=== PATIENT | male | born 2000 | race Caucasian/White ===

== ENCOUNTER 2021-03-10 12:37 | Emergency (ER) | payer MEDICAID ==
[~2021-03-10] VITALS: Ht 180 cm; Wt 99.0 kg
[~2021-03-10 12:37] MED LIST: AGM875T PO; AMOX250S5 PO; AMOX400S9 PO; AMOX500C2 PO; CEFD300C3 PO; CEPH125S PO; DIPH25TA82; IBUP-15; ONDA-42 SL; PRD20T PO
--- NOTE | 2021-03-10 12:53 | ED Lower Extremity ---
General Stated Complaint: LEFT AND RIGHT KNEE INJ/PAIN Source: patient, family (mom) Exam Limitations: no limitations History of Present Illness Date Seen by Provider: Mar 10, 2021 Time Seen by Provider: 12:38 Initial Comments Patient presents ER by private conveyance with his mother chief complaint that yesterday at an after prom constitution party at about 2 AM he was jumping on a trampoline trying to get very high and he came down and hyperextended his right knee. His left knee is also sore but his right knee was very painful and he could not bear any weight on it. He says he rested for an hour and then got back on the trampoline jumped some more and this causes more pain. No previous history of injury, trauma or surgery or scopes involving his limbs. No medical history. He has not taken anything for the pain but he did use ice overnight. He just brought it to his mother's attention this morning so she brought him to the ER to be checked out. Allergies and Home Medications Allergies Coded Allergies: No Known Drug Allergies (Unverified , 07/02/09) Home Medications Amoxicillin/Clavulanate K 875 Mg Tab, 1 TAB PO BID Prescribed by: NAIN LAMAR on 04/10/15 2341 Cefdinir 300 Mg Capsule, 1 EACH PO BID Prescribed by: NAIN LAMAR on 11/06/14 0567 Patient Home Medication List Home Medication List Reviewed: Yes Review of Systems Constitutional: No chills, No fever, No malaise EENTM: No ear discharge, No ear pain Respiratory: No cough, No short of breath Cardiovascular: No chest pain, No edema Gastrointestinal: No abdominal pain, No nausea, No vomiting Genitourinary: No discharge, No dysuria Musculoskeletal: see HPI; No back pain; joint pain All Other Systems Reviewed Negative Unless Noted: Yes Past Cqqfpde-Qkktig-Eishxp Hx Patient Social History Alcohol Use: Denies Use Drug of Choice: Denies Smoking Status: Never a Smoker Type Used: Electronic/Vapor Immunizations Up To Date Tetanus Booster (TDap): Less than 5yrs PED Vaccines UTD: Yes Seasonal Allergies Seasonal Allergies: Yes Past Medical History Reproductive Disorders: No Sexually Transmitted Disease: No Physical Exam Vital Signs Vital Signs - First Documented 03/10/21 12:40 Temp 37.0 Pulse 85 Resp 16 B/P (MAP) 137/80 O2 Delivery Room Air Capillary Refill : Height, Weight, BMI Height: 5'0" Weight: 110lbs. oz. 49.657974ly; BMI Method:Stated General Appearance: WD/WN, no apparent distress HEENT: normal ENT inspection, pharynx normal Neck: full range of motion, normal inspection Cardiovascular: normal peripheral pulses, regular rate, rhythm, no edema Respiratory: no respiratory distress, no accessory muscle use Hips: bilateral hip non-tender, bilateral hip normal inspection, bilateral hip normal range of motion, bilateral hip no evidence of injury Knees: left knee non-tender; bilateral knee normal inspection; left knee normal range of motion, left knee no evidence of injury; right knee bone tenderness (Mild anterior tibial tenderness to palpation), right knee swelling (Slight), right knee other (Lacks about 5 degrees of extension of the knee) Ankles: bilateral ankle non-tender, bilateral ankle normal inspection, bilateral ankle normal range of motion, bilateral ankle no evidence of injury Progress/Results/Core Measures Results/Orders My Orders Orders - BROOK DESAI Knee, Right, 3 Views (03/10/21 12:47) Naproxen Tablet (Naprosyn Tablet) (03/10/21 13:00) Medications Given in ED Current Medications Medications Dose Ordered Sig/Pierre Route Start Time Stop Time Status Last Admin Dose Admin Naproxen 500 mg ONCE ONCE PO 03/10/21 13:00 03/10/21 13:01 DC 03/10/21 13:12 500 MG Vital Signs/I&O 03/10/21 12:40 Temp 37.0 Pulse 85 Resp 16 B/P (MAP) 137/80 O2 Delivery Room Air Progress Progress Note : Time: 12:57 Progress Note The patient was unable to tolerate the pain to do a appropriate full ligamentous knee examination. We gave him an ice pack and offered Toradol which he declined an IM injection. He did except Naprosyn. We are going to put him on a course of NSAIDs and have him follow-up later in the week with an orthopedic surgeon for a more appropriate examination. Will wrap the knees with Jonathan wrap and put him on crutches. Diagnostic Imaging Diagonstic Imaging: Xray Plain Films/CT/US/NM/MRI: knee (Right) Comments [facility] [place], [place] NAME: TARSHA PHILLIP REC#: [id number] PT STATUS: REG ER : 2000 PHYSICIAN: BROOK DESAI MD ADMIT DATE: 03/10/21/ER Draft Date of Exam:03/10/21 KNEE, RIGHT, 3 VIEWS INDICATION: Knee pain, hyperextended jumping on trampoline TECHNIQUE: 3 views of the right knee CORRELATION STUDY: None FINDINGS: The joint spaces are maintained. The articular surfaces are smooth and preserved. There is no acute bony abnormality. Soft tissues are unremarkable. IMPRESSION: 1. Negative for acute bony abnormality of the knee. Dictated on workstation # [id number] Dict: 03/10/21 1312 Trans: 03/10/21 1312 DO [id number] Interpreted by: MARCUS ROSENBERG DO Electronically signed by: Reviewed: Reviewed by Me Departure Impression Primary Impression: Knee sprain, bilateral Disposition: 01 HOME, SELF-CARE Condition: Stable Departure-Patient Inst. Decision time for Depature: 13:18 Referrals: [facility] [place] Primary Care Physician FIOR HU MD, MICHAEL P MD Patient Instructions: Knee Sprain (DC) Add. Discharge Instructions: I suspect you have partially injured the ligaments of your knee otherwise known as a sprain. Would be vázquez to follow-up with an orthopedic surgeon in the next 1 to 2 weeks for reevaluation of your knees when the pain and swelling have improved. Make sure you are drinking plenty of fluids. Use ice for the first couple days for 20 minutes every 2 hours while awake. Warm moist heat and topical creams such as icy hot or creams with capsaicin oil are often helpful. Tylenol 650 mg every 8 hours as necessary for pain. Start a regimen of NSAIDs daily to reduce the inflammation in your back. Ibuprofen 800 mg every 8 hours or naproxen 500 mg twice a day. Crutches for the first week and bear weight as tolerated on the right leg. You may follow-up with [facility] therapy by calling for a no upfront cost evaluation at [phone]. I highly encourage you also to follow-up with an orthopedic surgeon such as Dr. APONTE, Dr. Hu or [facility] by calling [phone]. You should also seek help through your primary care office and managing your symptoms. Scripts Naproxen (Naprosyn) 500 Mg Tablet 500 MG PO BID for 14 Days, #30 TAB 0 Refills Prov: BROOK DESAI 03/10/21 Work/School Note: School/Childcare Release Date Seen in the Emergency Department: Mar 10, 2021 Time Dismissed from Emergency Department: 13:21 Return to School: Mar 11, 2021 Restrictions: Need Release from Doctor Other Restrictions Listed Below: May use crutches and weightbearing as tolerated right leg until 03/25/2021. BROOK DESAI Mar 10, 2021 12:53
[2021-03-10] MEDS ORDERED: NAPROXEN 250 MG (NAPROSYN) TABLET PO ONE (13:00)
--- NOTE | 2021-03-10 13:12 | Diagnostic Imaging Report ---
INDICATION: Knee pain, hyperextended jumping on trampoline TECHNIQUE: 3 views of the right knee CORRELATION STUDY: None FINDINGS: The joint spaces are maintained. The articular surfaces are smooth and preserved. There is no acute bony abnormality. Soft tissues are unremarkable. IMPRESSION: 1. Negative for acute bony abnormality of the knee. Dictated by: Dictated on workstation # [id number]
[2021-03-10] MEDS ORDERED: NAPR-1071 PO (13:21)
== END 2021-03-10 13:41 | disposition home or self-care (01) ==
LOC: EDUNIT# 12:37 → ER 12:39
DX: S83.92XA Sprain of unspecified site of left knee, initial encounter (principal); S83.91XA Sprain of unspecified site of right knee, initial encounter; X50.1XXA Overexertion from prolonged static or awkward postures, initial encounter; Y93.44 Activity, trampolining
CPT/HCPCS: 73562; 99282

== ENCOUNTER 2021-04-19 09:02 | Emergency (ER) | payer MEDICAID ==
[~2021-04-19] VITALS: Ht 177 cm; Wt 99.0 kg
[~2021-04-19 09:02] MED LIST changes: +NAPR-1071 PO
[2021-04-19 09:21] LABS: BASOPHILS # (AUTO) 0.1 10^3/uL (0.0-0.1); BASOPHILS % (AUTO) 1 % (0-10); EOSINOPHILS # (AUTO) 0.3 10^3/uL (0.0-0.3); EOSINOPHILS % (AUTO) 3 % (0-10); HEMATOCRIT 44 % (40-54); HEMOGLOBIN 14.4 g/dL (13.3-17.7); LYMPHOCYTES # (AUTO) 2.9 10^3/uL (1.0-4.0); LYMPHOCYTES % (AUTO) 26 % (12-44); MEAN CORPUSCULAR HEMOGLOBIN 28 pg (25-34); MEAN CORPUSCULAR HGB CONC 33 g/dL (32-36); MEAN CORPUSCULAR VOLUME 86 fL (80-99); MONOCYTES # (AUTO) 0.8 10^3/uL (0.0-1.0); MONOCYTES % (AUTO) 7 % (0-12); NEUTROPHILS # (AUTO) 6.9 10^3/uL (1.8-7.8); NEUTROPHILS % (AUTO) 63 % (42-75); PLATELET COUNT 372 10^3/uL (130-400)
[2021-04-19 09:33] LABS: CHLORIDE 102 MMOL/L (98-107); SODIUM 138 MMOL/L (135-145)
[2021-04-19 09:34] LABS: CALCIUM 9.9 MG/DL (8.5-10.1)
[2021-04-19 09:35] LABS: GLUCOSE 117 MG/DL (70-105)
[2021-04-19 09:36] LABS: CARBON DIOXIDE 23 MMOL/L (21-32)
[2021-04-19 09:38] LABS: CREATININE SERUM 0.83 MG/DL (0.60-1.30); GFR ESTIMATED > 60
[2021-04-19 09:39] LABS: BUN/CREATININE RATIO 13
[2021-04-19 09:41] LABS: MAGNESIUM 2.1 MG/DL (1.6-2.4)
--- NOTE | 2021-04-19 09:56 | Diagnostic Imaging Report ---
EXAMINATION: US Right Lower Extremity Venous Duplex. TECHNIQUE: Multiple real-time grayscale images were obtained over the right lower extremity in various projections. Additional spectral analysis and color Doppler duplex images were also obtained. HISTORY: Edema and pain in the right lower extremity. COMPARISON: None available. FINDINGS: The right common femoral vein, deep femoral vein, superficial femoral vein and popliteal vein are patent with normal zhao scale and doppler appearance. There is normal respiratory variation and augmentation. IMPRESSION: 1. No DVT of the right lower extremity. Dictated by: Dictated on workstation # [id number]
[2021-04-19] MEDS ORDERED: LACTATED RINGERS 1,000 ML IV ONE (10:00)
--- NOTE | 2021-04-19 10:37 | ED Syncope ---
General Chief Complaint: Dizziness/Syncope Stated Complaint: DIZZINESS,NUMBNESS, S/P R KNEE SX Nursing Triage Note: PT AMB TO ROOM 6 W CRUTCHES HAS KNEE BRACE IN PLACE ON R LEG, PT STATES @ 0200 THIS AM PT WAS DIZZY, NAUSEATED AND BODY WENT NUMB. SPOKE W MOM THIS AM AND DECIDED TO GET CHECKED AT ED. PT HAD ACL REPAIR ON 04/12/21. Source of Information: Patient, Family History of Present Illness Date Seen by Provider: April 19, 2021 Time Seen by Provider: 09:06 Initial Comments This 20-year-old young man presents to the emergency room accompanied by his mother with complaints of a near syncopal episode last night. He got up to go to the kitchen and became lightheaded and nauseated. He went to lay down and noticed generalized numbness throughout his extremities. He went to bed and is feeling fine this morning. He is about 1 week postop from a right knee arthroscopic ACL repair. He does have some swelling, bruising, and pain in the right lower leg including the calf. He denies chest pain or shortness of breath. Patient was noted to be tachycardic on telemetry. Allergies and Home Medications Allergies Coded Allergies: No Known Drug Allergies (Unverified , 07/02/09) Home Medications Amoxicillin/Clavulanate K 875 Mg Tab, 1 TAB PO BID Prescribed by: NAIN LAMAR on 04/10/15 2341 Cefdinir 300 Mg Capsule, 1 EACH PO BID Prescribed by: NAIN LAMAR on 11/06/14 0546 Naproxen 500 Mg Tablet, 500 MG PO BID Prescribed by: BROOK DESAI on 03/10/21 1321 Patient Home Medication List Home Medication List Reviewed: Yes Review of Systems Constitutional: no symptoms reported EENTM: no symptoms reported Respiratory: no symptoms reported Cardiovascular: see HPI Gastrointestinal: see HPI Genitourinary: no symptoms reported Musculoskeletal: see HPI Skin: see HPI Psychiatric/Neurological: See HPI Past Ntrqrao-Ndvciv-Bpafmn Hx Past Med/Social Hx: Reviewed Nursing Past Med/Soc Hx Patient Social History Alcohol Use: Denies Use Drug of Choice: Denies Type Used: Electronic/Vapor Recent Infectious Disease Expo: No Recent Hopitalizations: No Ebola Symptoms: Denies Symptoms Listed Immunizations Up To Date Tetanus Booster (TDap): Less than 5yrs PED Vaccines UTD: Yes Seasonal Allergies Seasonal Allergies: Yes Past Medical History Surgeries: Yes Orthopedic (Right ACL repair) Respiratory: No Cardiac: No Neurological: No Reproductive Disorders: No Sexually Transmitted Disease: No Gastrointestinal: No Musculoskeletal: No Endocrine: No HEENT: No Cancer: No Psychosocial: No Integumentary: No Blood Disorders: No Physical Exam Vital Signs Vital Signs - First Documented 04/19/21 04/19/21 09:03 10:48 Temp 36.7 Pulse 119 Resp 20 B/P (MAP) 142/87 Pulse Ox 99 Capillary Refill : Height, Weight, BMI Height: 5'0" Weight: 110lbs. oz. 49.190398yk; 31.00 BMI Method:Stated General Appearance: No Apparent Distress, WD/WN HEENT: Normal ENT Inspection Neck: Normal Inspection Cardiovascular: Regular Rate, Rhythm, No Edema, No Murmur Respiratory: Lungs Clear, Normal Breath Sounds, No Accessory Muscle Use Gastrointestinal: Soft; No Distended Extremities: Other (Typical postoperative changes with incisions over the right knee, ecchymosis, and minor swelling. No inflammatory changes to suggest infection. Mild calf tenderness.) Neurologic/Psychiatric: Alert, Oriented x3, No Motor/Sensory Deficits, Normal Mood/Affect, filter tender jelly II-XII Norm as Tested Cranial Nerves: Normal Hearing, Normal Speech Motor/Sensory: No Motor Deficit Skin: Normal Color, Warm/Dry Progress/Results/Core Measures Results/Orders Lab Results Laboratory Tests Test 04/19/21 09:10 Range/Units White Blood Count 11.0 4.3-11.0 10^3/uL Red Blood Count 5.12 4.30-5.52 10^6/uL Hemoglobin 14.4 13.3-17.7 g/dL Hematocrit 44 40-54 % Mean Corpuscular Volume 86 80-99 fL Mean Corpuscular Hemoglobin 28 25-34 pg Mean Corpuscular Hemoglobin Concent 33 32-36 g/dL Red Cell Distribution Width 13.2 10.0-14.5 % Platelet Count 372 130-400 10^3/uL Mean Platelet Volume 9.0 9.0-12.2 fL Immature Granulocyte % (Auto) 0 % Neutrophils (%) (Auto) 63 42-75 % Lymphocytes (%) (Auto) 26 12-44 % Monocytes (%) (Auto) 7 0-12 % Eosinophils (%) (Auto) 3 0-10 % Basophils (%) (Auto) 1 0-10 % Neutrophils # (Auto) 6.9 1.8-7.8 10^3/uL Lymphocytes # (Auto) 2.9 1.0-4.0 10^3/uL Monocytes # (Auto) 0.8 0.0-1.0 10^3/uL Eosinophils # (Auto) 0.3 0.0-0.3 10^3/uL Basophils # (Auto) 0.1 0.0-0.1 10^3/uL Immature Granulocyte # (Auto) 0.0 0.0-0.1 10^3/uL Sodium Level 138 135-145 MMOL/L Potassium Level 4.0 3.6-5.0 MMOL/L Chloride Level 102 98-107 MMOL/L Carbon Dioxide Level 23 21-32 MMOL/L Anion Gap 13 5-14 MMOL/L Blood Urea Nitrogen 11 7-18 MG/DL Creatinine 0.83 0.60-1.30 MG/DL Estimat Glomerular Filtration Rate > 60 BUN/Creatinine Ratio 13 Glucose Level 117 H 70-105 MG/DL Calcium Level 9.9 8.5-10.1 MG/DL Magnesium Level 2.1 1.6-2.4 MG/DL My Orders Orders - KRISS GONZALEZ MD Basic Metabolic Panel (04/19/21 09:16) Cbc With Automated Diff (04/19/21 09:16) Magnesium (04/19/21 09:16) Ed Iv/Invasive Line Start (04/19/21 09:16) Ekg Tracing (04/19/21 09:16) Monitor-Rhythm Ecg Trace Only (04/19/21 09:16) Us Venous Lower Ext Rt (04/19/21 09:16) Lactated Ringers (Lr 1000 Ml Iv Solution (04/19/21 10:00) Vital Signs/I&O 04/19/21 04/19/21 09:03 10:48 Temp 36.7 Pulse 119 84 Resp 20 20 B/P (MAP) 142/87 Pulse Ox 99 Progress Progress Note : Progress Note Work-up was unremarkable. Patient did comment that he has not been drinking well recently. IV fluids were offered but patient elects to aggressively orally hydrate. Ultrasound of the right lower extremity was obtained to rule out DVT with possible subsequent PE. Ultrasound was negative. Initial ECG Impression Date: April 19, 2021 Initial ECG Impression Time: 09:20 Initial ECG Rate: 86 Initial ECG Rhythm: Normal Sinus Initial ECG Intervals: Normal Initial ECG Impression: Normal Comment Normal sinus rhythm with no ST elevation or depression. No abnormal intervals or axis deviation. Diagnostic Imaging Diagonstic Imaging: Ultrasound Plain Films/CT/US/NM/MRI: leg Comments NAME: TARSHA PHILLIP [facility] REC#: [id number] PT STATUS: REG ER : 2000 PHYSICIAN: KRISS GONZALEZ MD ADMIT DATE: 04/19/21/ER Signed Date of Exam:04/19/21 US VENOUS LOWER EXT RT EXAMINATION: US Right Lower Extremity Venous Duplex. TECHNIQUE: Multiple real-time grayscale images were obtained over the right lower extremity in various projections. Additional spectral analysis and color Doppler duplex images were also obtained. HISTORY: Edema and pain in the right lower extremity. COMPARISON: None available. FINDINGS: The right common femoral vein, deep femoral vein, superficial femoral vein and popliteal vein are patent with normal zhao scale and doppler appearance. There is normal respiratory variation and augmentation. IMPRESSION: 1. No DVT of the right lower extremity. Dictated by: Dictated on workstation # [id number] Dict: 04/19/2156 Trans: 04/19/2159 [facility] [id number] Interpreted by: ELIO BARBOZA DO Electronically signed by: ELIO BARBOZA DO 04/19/21 0959 Departure Impression Primary Impression: Near syncope Additional Impression: Postoperative pain Disposition: 01 HOME, SELF-CARE Condition: Improved Departure-Patient Inst. Decision time for Depature: 10:36 Referrals: [facility] (PCP/Family) Primary Care Physician Patient Instructions: Syncope (Fainting) Add. Discharge Instructions: Drink plenty of clear liquids to stay well-hydrated. Call with questions or concerns. Keep your follow-up as directed with the orthopedic team. Return to the emergency room if you have worsening symptoms. All discharge instructions reviewed with patient and/or family. Voiced understanding. KRISS GONZALEZ MD April 19, 2021 10:37
== END 2021-04-19 10:47 | disposition home or self-care (01) ==
LOC: EDUNIT# 09:02 → ER 09:04
DX: R55 Syncope and collapse (principal); G89.18 Other acute postprocedural pain; M79.661 Pain in right lower leg
CPT/HCPCS: 36415; 80048; 83735; 85025; 93005; 93041

== ENCOUNTER 2021-10-14 13:03 | Emergency (ER) | payer MEDICAID ==
[~2021-10-14] VITALS: Ht 180 cm; Wt 97.0 kg
[2021-10-14] MEDS ORDERED: TETANUS,DIPTH,PERTUSS P/F (BOOSTRIX) 0.5 ML VIAL IM ONE (13:30)
[2021-10-14] MEDS ORDERED: LIDOCAINE 1% INJ 20 ML 20 ML VIAL INJ ONE (13:30)
[2021-10-14] MEDS ORDERED: CEPH500T PO (13:30)
--- NOTE | 2021-10-14 13:30 | ED Lower Extremity ---
General Chief Complaint: Laceration Stated Complaint: RIGHT FOOT CUT OPEN Source: patient Exam Limitations: no limitations History of Present Illness Date Seen by Provider: Oct 14, 2021 Time Seen by Provider: 13:12 Initial Comments This is a well-appearing 21-year-old male who presented to the ER via POV with complaints of cut on the top of his right foot. States that he opened the front door and the wind caught it and brought it back against his foot. This occurred approximately 1 hour prior to arrival. He applied pressure and attempted to bandage his foot however he was unable to stop the bleeding. States that he does not know if he has ever received a tetanus vaccine and is unsure of his last tetanus shot. No other injuries reported. Allergies and Home Medications Allergies Coded Allergies: No Known Drug Allergies (Unverified , 07/02/09) Patient Home Medication List Home Medication List Reviewed: Yes Amoxicillin/Clavulanate K (Augmentin 875 Mg Tablet) 875 Mg Tab, 1 TAB PO BID Prescribed by: NAIN LAMAR on 04/10/15 2341 Cefdinir (Cefdinir) 300 Mg Capsule, 1 EACH PO BID Prescribed by: NAIN LAMAR on 11/06/14 0546 Cephalexin (Cephalexin) 500 Mg Tablet, 500 MG PO TID Prescribed by: PHYLLIS HARPER on 10/14/21 1330 Naproxen (Naprosyn) 500 Mg Tablet, 500 MG PO BID Prescribed by: BROOK DESAI on 03/10/21 1321 Review of Systems Constitutional: no symptoms reported Musculoskeletal: no symptoms reported Skin: see HPI Past Lzbwzoj-Mmmzkb-Jngyny Hx Patient Social History Use of E-Cig and/or Vaping dev: Yes E-Cig or Vaping type used: Nicotine Use of E-Cig and/or Vaping Darion: Current Everyday User Substance use?: Yes Substance type: Marijuana Alcohol Use?: No Pt feels they are or have been: No Immunizations Up To Date Tetanus Booster (TDap): Less than 5yrs PED Vaccines UTD: Yes Seasonal Allergies Seasonal Allergies: Yes Past Medical History Surgeries: Yes Orthopedic Respiratory: No Cardiac: No Neurological: No Reproductive Disorders: No Sexually Transmitted Disease: No Gastrointestinal: No Musculoskeletal: No Endocrine: No HEENT: No Cancer: No Psychosocial: No Integumentary: No Blood Disorders: No Physical Exam Vital Signs Vital Signs - First Documented 10/14/21 13:13 Temp 36.6 Pulse 78 Resp 16 B/P (MAP) 131/84 (100) Pulse Ox 98 Capillary Refill : Height, Weight, BMI Height: 5'0" Weight: 110lbs. oz. 49.729027df; 31.00 BMI Method:Stated General Appearance: WD/WN, no apparent distress HEENT: PERRL/EOMI Neck: full range of motion, normal inspection Respiratory: no respiratory distress, no accessory muscle use Legs: bilateral leg non-tender, bilateral leg normal inspection, bilateral leg normal range of motion Feet: left foot non-tender; bilateral foot normal range of motion; right foot soft tissue tenderness, right foot swelling (small hematoma present under laceration site. ), right foot other (2cm laceration doral aspect of right foot, over 4th metatarsal ) Neurologic/Tendon: normal sensation, normal motor functions, normal tendon functions Neurologic/Psychiatric: no motor/sensory deficits, alert, normal mood/affect Skin: normal color, warm/dry Procedures/Interventions Other Wound Location right dorsal foot Wound Length (cm): 2 Wound's Depth, Shape: linear Wound Explored: clean Irrigated w/ Saline (ccs): 50 Betadine Prep?: Yes Anesthesia: 1% Lidocaine Volume Anesthetic (ccs): 2 Suture: Ethlion Suture Size: 3-0 Number of Sutures: 2 Progress Cleansed with saline and chlorhexadine. Locally anesthetized with 2cc Lidocaine 1%, irrigated with 50cc NS, approximated with 2 sutures (3-0 Nylon). Covered with telfa and ricky wrap. Ice pack applied. Tolerated well. Progress/Results/Core Measures Results/Orders My Orders Orders - PHYLLIS HARPER APRN Lidocaine 1% Inj 20 Ml (Xylocaine 1% Inj (10/14/21 13:30) Dipht,Pertuss(Acell),Tet Adult (Boostrix (10/14/21 13:30) Foot, Right, 3 View (10/14/21 13:21) Medications Given in ED Current Medications Medications Dose Ordered Sig/Pierre Route Start Time Stop Time Status Last Admin Dose Admin Diphtheria/ Tetanus/Acell Pertussis 0.5 ml ONCE ONCE IM 10/14/21 13:30 10/14/21 13:31 DC 10/14/21 13:35 0.5 ML Lidocaine HCl 20 ml ONCE ONCE INJ 10/14/21 13:30 10/14/21 13:31 DC 10/14/21 13:35 20 ML Vital Signs/I&O 10/14/21 13:13 Temp 36.6 Pulse 78 Resp 16 B/P (MAP) 131/84 (100) Pulse Ox 98 Progress Progress Note : Progress Note Patient examined and in no acute distress. Currently rating pain 3/10 and is comfortable at this time. Will obtain x-ray of his foot to check for any acute fractures. Cleansed area with saline and chlorhexidine wash dry dressing applied at this time. Images reviewed no acute fractures. Approximated wound with 2 sutures, tolerated procedure well. Discharge plan of care reviewed and he is agreeable with plan. Diagnostic Imaging Diagonstic Imaging: Xray Comments [facility]. [place], [place] NAME: TARSHA PHILLIP [facility] REC#: [id number] PT STATUS: REG ER : 2000 PHYSICIAN: PHYLLIS HARPER CLOTHING MAN ADMIT DATE: 10/14/21/ER Draft Date of Exam:10/14/21 FOOT, RIGHT, 3 VIEW INDICATION: Laceration injury COMPARISON: 08/18/2014 FINDINGS: 3 views of the right foot demonstrate no acute fracture or dislocation. There are no focal osseous lesions. There is no soft tissue swelling. Joint spaces are well maintained. No radiopaque foreign bodies are seen. IMPRESSION: No acute fractures or dislocations of the right foot. Dictated on workstation # [id number] Dict: 10/14/21 1351 Trans: 10/14/21 1352 [facility] [id number] Interpreted by: DARCIE ZEPEDA MD Electronically signed by: Reviewed: Reviewed by Me Departure Impression Primary Impression: Laceration of foot, right Disposition: 01 HOME, SELF-CARE Condition: Improved Departure-Patient Inst. Decision time for Depature: 13:51 Referrals: [facility] (PCP/Family) Primary Care Physician Patient Instructions: Laceration Repair With Stitches (DC) Add. Discharge Instructions: Plan: 1. Keep foot elevated above your heart as much as possible over the next 48-72 hours to reduce swelling. 2. May take Tylenol or Ibuprofen as needed per package for pain. 3. Keep dry dressing over suture site so your socks do not stick to sutures. 4. May shower as normal, avoid soaking, swimming, or scrubbing area while sutures in place. 5. Return to ER in 10 days to have sutures removed. 6. Monitor for signs of infection: redness, swelling, pain, drainage. Follow up with your doctor or return if you notice any sings of infection. 7. Return for any new, concerning, or worsening symptoms. 8. Your tetanus was updated today. You may have a low grade fever and pain at injection site. This is normal. All discharge instructions reviewed with patient and/or family. Voiced understanding. Scripts Cephalexin (Cephalexin) 500 Mg Tablet 500 MG PO TID for 5 Days, #15 TAB 0 Refills Prov: PHYLLIS HARPER APRN 10/14/21 PHYLLIS HARPER APRN Oct 14, 2021 13:30
--- NOTE | 2021-10-14 13:53 | Diagnostic Imaging Report ---
INDICATION: Laceration injury COMPARISON: 08/18/2014 FINDINGS: 3 views of the right foot demonstrate no acute fracture or dislocation. There are no focal osseous lesions. There is no soft tissue swelling. Joint spaces are well maintained. No radiopaque foreign bodies are seen. IMPRESSION: No acute fractures or dislocations of the right foot. Dictated by: Dictated on workstation # [id number]
[2021-10-14 14:20] VITALS: BP 131/84
== END 2021-10-14 14:20 | disposition home or self-care (01) ==
LOC: EDUNIT# 13:03 → ER 13:06
DX: S91.311A Laceration without foreign body, right foot, initial encounter (principal); F17.200 Nicotine dependence, unspecified, uncomplicated; Z23 Encounter for immunization; W26.8XXA Contact with other sharp object(s), not elsewhere classified, initial encounter
CPT/HCPCS: 12001; 73630; 90715

== ENCOUNTER 2021-10-25 15:12 | Emergency (ER) | payer MEDICAID ==
[~2021-10-25] VITALS: Ht 180 cm; Wt 100.0 kg
[~2021-10-25 15:12] MED LIST changes: +CEPH500T PO
[2021-10-25 15:18] VITALS: BP 131/78
== END 2021-10-25 15:28 | disposition home or self-care (01) ==
LOC: EDUNIT# 15:12 → ER 15:13
DX: Z48.02 Encounter for removal of sutures (principal)

== ENCOUNTER 2021-12-05 16:37 | Emergency (ER) | payer MEDICAID ==
[~2021-12-05] VITALS: Ht 180 cm; Wt 99.0 kg
[2021-12-05] MEDS ORDERED: KETOROLAC 30 MG/ML VIAL IVP STA (16:49)
[2021-12-05] MEDS ORDERED: LACTATED RINGERS 1,000 ML IV STA (16:49)
[2021-12-05] MEDS ORDERED: ACETAMINOPHEN 500 MG TAB (TYLENOL) PO STA (16:49)
--- NOTE | 2021-12-05 16:57 | ED General ---
General Chief Complaint: COVID19 Suspect/Confirmed Stated Complaint: BODY ACHES,HEADACHE,CHILLS,DIZZY Source of Information: Patient Exam Limitations: No Limitations History of Present Illness Date Seen by Provider: Dec 05, 2021 Time Seen by Provider: 16:42 Initial Comments Here with chills, sore throat, runny nose, body aches, cough and malaise that started yesterday as well as a few days of diarrhea. No known contact with COVID-19 although high levels in the community. Did have contact a few weeks ago. Lives in [place] but was here working on a car. States overall feels very weak. Follows with [facility] in [place]. Has not had anything for the pain today. Timing/Duration: 1-2 Days, Getting Worse Severity: Moderate Associated Systoms: Cough, Fever/Chills, Headaches, Loss of Appetite, Malaise; No Shortness of Air Allergies and Home Medications Allergies Coded Allergies: No Known Drug Allergies (Unverified , 07/02/09) Patient Home Medication List Home Medication List Reviewed: Yes Amoxicillin/Clavulanate K (Augmentin 875 Mg Tablet) 875 Mg Tab, 1 TAB PO BID Prescribed by: NAIN LAMAR on 04/10/15 2341 Cefdinir (Cefdinir) 300 Mg Capsule, 1 EACH PO BID Prescribed by: NAIN LAMAR on 11/06/14 0546 Cephalexin (Cephalexin) 500 Mg Tablet, 500 MG PO TID Prescribed by: PHYLLIS HARPER on 10/14/21 1330 Naproxen (Naprosyn) 500 Mg Tablet, 500 MG PO BID Prescribed by: BROOK DESAI on 03/10/21 1321 Review of Systems Review of Systems Constitutional: see HPI, chills, malaise EENTM: see HPI Respiratory: No short of breath, No wheezing Cardiovascular: no symptoms reported Gastrointestinal: diarrhea; No nausea, No vomiting Genitourinary: no symptoms reported Musculoskeletal: No joint pain; muscle pain Skin: no symptoms reported Psychiatric/Neurological: No Symptoms Reported All Other Systems Reviewed Negative Unless Noted: Yes Past Aggchje-Udeggb-Tavxuk Hx Patient Social History Tobacco Use?: No Use of E-Cig and/or Vaping dev: Yes E-Cig or Vaping type used: Nicotine Substance use?: Yes Substance type: Marijuana Alcohol Use?: No Pt feels they are or have been: No Immunizations Up To Date Tetanus Booster (TDap): Less than 5yrs PED Vaccines UTD: Yes Seasonal Allergies Seasonal Allergies: Yes Past Medical History Surgery/Hospitalization HX: ACL REPAIR Surgeries: Yes Orthopedic Respiratory: No Cardiac: No Neurological: No Reproductive Disorders: No Sexually Transmitted Disease: No Gastrointestinal: No Musculoskeletal: No Endocrine: No HEENT: No Cancer: No Psychosocial: No Integumentary: No Blood Disorders: No Family Medical History Reviewed Nursing Family Hx No Pertinent Family Hx Physical Exam Vital Signs Vital Signs - First Documented 12/05/21 16:41 Temp 37.1 Pulse 116 Resp 18 B/P (MAP) 148/93 (111) Pulse Ox 96 O2 Delivery Room Air Capillary Refill : Height, Weight, BMI Height: 5'0" Weight: 110lbs. oz. 49.687165tb; 29.00 BMI Method:Actual General Appearance: No Apparent Distress, WD/WN HEENT: PERRL/EOMI, Pharynx Normal Neck: Non Tender, Supple Respiratory: Lungs Clear, Normal Breath Sounds Cardiovascular: No Murmur, Tachycardia Gastrointestinal: No Organomegaly, Non Tender, Soft Back: Normal Inspection, No CVA Tenderness, No Vertebral Tenderness Extremity: Normal Range of Motion, Non Tender Neurologic/Psychiatric: Alert, Oriented x3 Skin: Normal Color, Warm/Dry Procedures/Interventions Suture Size: 3-0 Progress/Results/Core Measures Suspected Sepsis SIRS Temperature: Pulse: Respiratory Rate: Laboratory Tests 12/05/21 16:51: White Blood Count 9.4 Blood Pressure / Mean: Laboratory Tests 12/05/21 16:51: Creatinine 0.85, Platelet Count 294, Total Bilirubin 0.2 Results/Orders Lab Results Laboratory Tests Test 12/05/21 16:51 Range/Units White Blood Count 9.4 4.3-11.0 10^3/uL Red Blood Count 5.25 4.30-5.52 10^6/uL Hemoglobin 14.8 13.3-17.7 g/dL Hematocrit 44 40-54 % Mean Corpuscular Volume 84 80-99 fL Mean Corpuscular Hemoglobin 28 25-34 pg Mean Corpuscular Hemoglobin Concent 33 32-36 g/dL Red Cell Distribution Width 13.6 10.0-14.5 % Platelet Count 294 130-400 10^3/uL Mean Platelet Volume 9.1 9.0-12.2 fL Immature Granulocyte % (Auto) 1 % Neutrophils (%) (Auto) 81 H 42-75 % Lymphocytes (%) (Auto) 4 L 12-44 % Monocytes (%) (Auto) 12 0-12 % Eosinophils (%) (Auto) 1 0-10 % Basophils (%) (Auto) 1 0-10 % Neutrophils # (Auto) 7.6 1.8-7.8 X 10^3 Lymphocytes # (Auto) 0.4 L 1.0-4.0 X 10^3 Monocytes # (Auto) 1.1 H 0.0-1.0 X 10^3 Eosinophils # (Auto) 0.1 0.0-0.3 10^3/uL Basophils # (Auto) 0.1 0.0-0.1 10^3/uL Immature Granulocyte # (Auto) 0.1 0.0-0.1 10^3/uL Neutrophils % (Manual) 86 % Lymphocytes % (Manual) 1 % Monocytes % (Manual) 10 % Eosinophils % (Manual) 2 % Basophils % (Manual) 0 % Band Neutrophils 1 % Sodium Level 137 135-145 MMOL/L Potassium Level 3.8 3.6-5.0 MMOL/L Chloride Level 101 98-107 MMOL/L Carbon Dioxide Level 23 21-32 MMOL/L Anion Gap 13 5-14 MMOL/L Blood Urea Nitrogen 10 7-18 MG/DL Creatinine 0.85 0.60-1.30 MG/DL Estimat Glomerular Filtration Rate 128 BUN/Creatinine Ratio 12 Glucose Level 117 H 70-105 MG/DL Calcium Level 9.7 8.5-10.1 MG/DL Corrected Calcium 8.5-10.1 MG/DL Total Bilirubin 0.2 0.1-1.0 MG/DL Aspartate Amino Transf (AST/SGOT) 21 5-34 U/L Alanine Aminotransferase (ALT/SGPT) 17 0-55 U/L Alkaline Phosphatase 87 40-136 U/L C-Reactive Protein 0.35 <0.50 MG/DL Total Protein 8.4 H 6.4-8.2 GM/DL Albumin 5.1 H 3.2-4.5 GM/DL Influenza Type A Antigen NEGATIVE NEGATIVE Influenza Type B Antigen NEGATIVE NEGATIVE My Orders Orders - NATI RESENDIZ MD Ondansetron Injection (Zofran Injectio (12/05/21 17:00) Lactated Ringers (Lr 1000 Ml Iv Solution (12/05/21 16:49) Ed Iv/Invasive Line Start (12/05/21 16:49) Acetaminophen Tablet (Tylenol Tablet) (12/05/21 16:49) Ketorolac Injection (Toradol Injection) (12/05/21 16:49) Cbc With Automated Diff (12/05/21 16:49) Comprehensive Metabolic Panel (12/05/21 16:49) Crp Fs (12/05/21 16:49) Influenza A & B Antigens (12/05/21 16:49) Coronavirus Sars-Cov-2 So 2019 (12/05/21 16:49) Manual Differential (12/05/21 16:51) Medications Given in ED Current Medications Medications Dose Ordered Sig/Pierre Route Start Time Stop Time Status Last Admin Dose Admin Ondansetron HCl 4 mg ONCE ONCE IVP 12/05/21 17:00 12/05/21 17:01 DC 12/05/21 16:57 4 MG Vital Signs/I&O 12/05/21 12/05/21 16:41 17:43 Temp 37.1 37.1 Pulse 116 99 Resp 18 18 B/P (MAP) 148/93 (111) 123/77 Pulse Ox 96 98 O2 Delivery Room Air Room Air Capillary Refill : Progress Note : Progress Note Seen and evaluated. IV, labs, influenza screening, COVID-19 screen, LR 1 L bolus, Zofran 4 mg IV, Toradol 30 mg IV and Tylenol 1 g p.o. ordered. Monitor patient. 1814: Overall doing better. Urinating now. Flu is negative but COVID is pending. I do believe he has COVID given his presentation and community spread. I discussed this with him. Discharged home with return precautions. Patient verbalized understanding of instructions and agreement with plan. Departure Impression Primary Impression: Person under investigation for COVID-19 Additional Impression: Diarrhea Disposition: 01 HOME, SELF-CARE Condition: Improved Departure-Patient Inst. Decision time for Depature: 18:14 Referrals: [facility] (PCP/Family) Primary Care Physician Patient Instructions: COVID-19 (DC), Diarrhea, Adult ED Add. Discharge Instructions: All discharge instructions reviewed with patient and/or family. Voiced understanding. Drink plenty of fluids by taking small sips frequently and get plenty of rest. You will need to remain isolated until test results are noted. If they are ne gative, you will need remain isolated for 3 days after symptoms resolve. If they are positive, the health department will call you and direct quarantine/isolation timeframe. You may take ibuprofen 600 mg every 8 hours as needed for fever or pain. You may take Tylenol/acetaminophen 1000 mg every 8 hours as needed for fever or pain. Return for worse pain, fever, vomiting, weakness, breathing problems or other concerns as needed. Scripts Ondansetron (Ondansetron Odt) 4 Mg Tab.rapdis 4 MG PO Q6H PRN for NAUSEA/VOMITING, #8 TAB 0 Refills Prov: NATI RESENDIZ MD 12/05/21 NATI RESENDIZ MD Dec 05, 2021 16:57
[2021-12-05] MEDS ORDERED: ONDANSETRON 4 MG/2 ML (SDV) Z0FRAN IVP ONE (17:00)
[2021-12-05 17:05] LABS: BASOPHILS % (AUTO) 1 % (0-10); EOSINOPHILS % (AUTO) 1 % (0-10); HEMATOCRIT 44 % (40-54); HEMOGLOBIN 14.8 g/dL (13.3-17.7); LYMPHOCYTES % (AUTO) 4 % (12-44); MEAN CORPUSCULAR HEMOGLOBIN 28 pg (25-34); MEAN CORPUSCULAR HGB CONC 33 g/dL (32-36); MEAN CORPUSCULAR VOLUME 84 fL (80-99); MEAN PLATELET VOLUME 9.1 fL (9.0-12.2); MONOCYTES % (AUTO) 12 % (0-12); NEUTROPHILS % (AUTO) 81 % (42-75); PLATELET COUNT 294 10^3/uL (130-400); WHITE BLOOD COUNT 9.4 10^3/uL (4.3-11.0)
[2021-12-05 17:06] LABS: BASOPHILS # (AUTO) 0.1 10^3/uL (0.0-0.1); EOSINOPHILS # (AUTO) 0.1 10^3/uL (0.0-0.3); LYMPHOCYTES # (AUTO) 0.4 X 10^3 (1.0-4.0); MONOCYTES # (AUTO) 1.1 X 10^3 (0.0-1.0); NEUTROPHILS # (AUTO) 7.6 X 10^3 (1.8-7.8)
[2021-12-05 17:23] LABS: BUN/CREATININE RATIO 12; CARBON DIOXIDE 23 MMOL/L (21-32); CHLORIDE 101 MMOL/L (98-107); CREATININE SERUM 0.85 MG/DL (0.60-1.30); GFR ESTIMATED 128; POTASSIUM 3.8 MMOL/L (3.6-5.0); SODIUM 137 MMOL/L (135-145)
[2021-12-05 17:24] LABS: ALANINE AMINOTRANSFERASE 17 U/L (0-55); ALBUMIN 5.1 GM/DL (3.2-4.5); ALKALINE PHOSPHATASE 87 U/L (40-136); BAND NEUTROPHILS 1 %; BILIRUBIN,TOTAL 0.2 MG/DL (0.1-1.0); CALCIUM 9.7 MG/DL (8.5-10.1); EOSINOPHILS % (MANUAL) 2 %; GLUCOSE 117 MG/DL (70-105); LYMPHOCYTES % (MANUAL) 1 %; MONOCYTES % (MANUAL) 10 %; NEUTROPHILS % (MANUAL) 86 %; TOTAL PROTEIN 8.4 GM/DL (6.4-8.2)
[2021-12-05 17:25] LABS: BASOPHILS % (MANUAL) 0 %
[2021-12-05 17:43] VITALS: BP 123/77
[2021-12-05] MEDS ORDERED: ONDA4TAB11 PO (18:14)
== END 2021-12-05 18:15 | disposition home or self-care (01) ==
LOC: EDUNIT# 16:37 → ER FS 16:38
DX: U07.1 COVID-19 (principal)
CPT/HCPCS: 36415; 80053; 85007; 85027; 86141; 87635; 87804

== ENCOUNTER 2022-07-12 18:19 | Emergency (ER) | payer MEDICAID ==
[~2022-07-12] VITALS: Ht 185 cm; Wt 99.7 kg
[~2022-07-12 18:19] MED LIST changes: +ONDA4TAB11 PO
--- NOTE | 2022-07-12 18:31 | ED General ---
General Chief Complaint: COVID19 Suspect/Confirmed Stated Complaint: SOA/BODYACHES/HEADACHE/ABD PAIN Source of Information: Patient (BRIANDANAIN Monet Jose THOMPSON) Source of Information: Patient (KUSHAL HALLMAN) History of Present Illness Date Seen by Provider: Jul 12, 2022 Time Seen by Provider: 18:25 Initial Comments PT ARRIVES VIA POV FROM HOME, WITH GIRLFRIEND PT STARTED FEELING SICK LAST NIGHT WITH MULTIPLE COMPLAINTS: -HEADACHE -BODY ACHES - (BRIANDANAIN Garcia DO) Initial Comments This is a 21-year-old male that presents to the emergency room for evaluation of headaches, body aches, abdominal pain, nausea and a mild cough. He states he started feeling sick yesterday and his symptoms have been worsening today. He does not have any known ill contacts and he has not taken anything prior to arrival. Timing/Duration: 1 Day Severity: Moderate Associated Systoms: Cough, Headaches, Malaise (KUSHAL HALLMAN) Allergies and Home Medications Allergies Coded Allergies: No Known Drug Allergies (Unverified , 07/02/09) Patient Home Medication List Home Medication List Reviewed: Yes (KUSHAL HALLMAN) Discontinued Medications Amoxicillin/Clavulanate K (Augmentin 875 Mg Tablet) 875 Mg Tab, 1 TAB PO BID Discontinued Reason: No Longer Taking Prescribed by: NAIN LAMAR on 04/10/15 2341 Last Action: Discontinued Cefdinir (Cefdinir) 300 Mg Capsule, 1 EACH PO BID Discontinued Reason: No Longer Taking Prescribed by: NAIN LAMAR on 11/06/14 0546 Last Action: Discontinued Cephalexin (Cephalexin) 500 Mg Tablet, 500 MG PO TID Discontinued Reason: No Longer Taking Prescribed by: PHYLLIS HARPER on 10/14/21 1330 Last Action: Discontinued Naproxen (Naprosyn) 500 Mg Tablet, 500 MG PO BID Discontinued Reason: No Longer Taking Prescribed by: BROOK DESAI on 03/10/21 1321 Last Action: Discontinued Ondansetron (Ondansetron Odt) 4 Mg Tab.rapdis, 4 MG PO Q6H PRN for NAUSEA/VOMITING Discontinued Reason: No Longer Taking Prescribed by: NATI RESENDIZ on 12/05/21 1814 Last Action: Discontinued Review of Systems Review of Systems Constitutional: see HPI Musculoskeletal: see HPI (BODY ACHES) Psychiatric/Neurological: See HPI, Headache (BRIANDACECILA K DO) Constitutional: chills, diaphoresis EENTM: nose congestion Respiratory: cough Cardiovascular: no symptoms reported Gastrointestinal: no symptoms reported Genitourinary: no symptoms reported Musculoskeletal: muscle pain Skin: no symptoms reported Psychiatric/Neurological: No Symptoms Reported (KUSHAL HALLMAN) Past Zdlwfxy-Uaenyc-Qclnmj Hx Immunizations Up To Date Tetanus Booster (TDap): Less than 5yrs PED Vaccines UTD: Yes (BRIANDACECILA K DO) Seasonal Allergies Seasonal Allergies: Yes (BRIANDACECILA K DO) Past Medical History Surgery/Hospitalization HX: ACL REPAIR Surgeries: Yes Orthopedic Respiratory: No Cardiac: No Neurological: No Reproductive Disorders: No Sexually Transmitted Disease: No Gastrointestinal: No Musculoskeletal: No Endocrine: No HEENT: No Cancer: No Psychosocial: No Integumentary: No Blood Disorders: No (BRIANDACECILA K DO) Family Medical History No Pertinent Family Hx (BRIANDACECILA Jose DO) Physical Exam Vital Signs Vital Signs - First Documented 07/12/22 18:24 Temp 37.1 Pulse 97 Resp 16 B/P (MAP) 139/89 (106) Pulse Ox 96 O2 Delivery Room Air (KUSHAL HALLMAN) Vital Signs Capillary Refill : (CECIL LAMARA K DO) Height, Weight, BMI Height: 5'0" Weight: 110lbs. oz. 49.590993bj; 30.00 BMI Method:Actual General Appearance: No Apparent Distress, WD/WN, Other (DOES NOT APPEAR ILL OR TO BE IN ANY DISCOMFORT OR DISTRESS. ) Respiratory: Normal Breath Sounds Cardiovascular: Regular Rate, Rhythm Neurologic/Psychiatric: Alert, Oriented x3 (BRIANDA,NAIN K DO) General Appearance: No Apparent Distress, Other (ill appearing, no distress) HEENT: PERRL/EOMI, Normal ENT Inspection, Pharynx Normal Neck: Full Range of Motion, Normal Inspection Respiratory: Chest Non Tender, Lungs Clear, Normal Breath Sounds Cardiovascular: Regular Rate, Rhythm, No Edema Gastrointestinal: Normal Bowel Sounds Back: Normal Inspection, No CVA Tenderness Neurologic/Psychiatric: Alert, Oriented x3, software developer manager II-XII Norm as Tested Skin: Normal Color, Warm/Dry Lymphatic: No Adenopathy (KUSHAL HALLMAN) Procedures/Interventions Suture Size: 3-0 (NAIN LAMAR DO) Progress/Results/Core Measures Suspected Sepsis SIRS Temperature: Pulse: Respiratory Rate: Blood Pressure / Mean: (NAIN LAMAR DO) SIRS Laboratory Tests 07/12/22 18:50: White Blood Count 9.8 Laboratory Tests 07/12/22 18:50: Creatinine 0.92, Platelet Count 275, Total Bilirubin 0.3 (KUSHAL HALLMAN) Results/Orders Lab Results Laboratory Tests Test 07/12/22 18:24 07/12/22 18:50 Range/Units Influenza Type A (RT-PCR) Not Detected Not Detecte Influenza Type B (RT-PCR) Not Detected Not Detecte SARS-CoV-2 RNA (RT-PCR) Detected H Not Detecte White Blood Count 9.8 4.3-11.0 10^3/uL Red Blood Count 4.95 4.30-5.52 10^6/uL Hemoglobin 14.2 13.3-17.7 g/dL Hematocrit 42 40-54 % Mean Corpuscular Volume 84 80-99 fL Mean Corpuscular Hemoglobin 29 25-34 pg Mean Corpuscular Hemoglobin Concent 34 32-36 g/dL Red Cell Distribution Width 13.2 10.0-14.5 % Platelet Count 275 130-400 10^3/uL Mean Platelet Volume 9.0 9.0-12.2 fL Immature Granulocyte % (Auto) 0 % Neutrophils (%) (Auto) 85 H 42-75 % Lymphocytes (%) (Auto) 3 L 12-44 % Monocytes (%) (Auto) 10 0-12 % Eosinophils (%) (Auto) 1 0-10 % Basophils (%) (Auto) 1 0-10 % Neutrophils # (Auto) 8.4 H 1.8-7.8 10^3/uL Lymphocytes # (Auto) 0.3 L 1.0-4.0 10^3/uL Monocytes # (Auto) 1.0 0.0-1.0 10^3/uL Eosinophils # (Auto) 0.1 0.0-0.3 10^3/uL Basophils # (Auto) 0.1 0.0-0.1 10^3/uL Immature Granulocyte # (Auto) 0.0 0.0-0.1 10^3/uL Neutrophils % (Manual) 80 % Lymphocytes % (Manual) 5 % Monocytes % (Manual) 13 % Eosinophils % (Manual) 2 % Blood Morphology Comment NORMAL Sodium Level 138 135-145 MMOL/L Potassium Level 3.7 3.6-5.0 MMOL/L Chloride Level 106 98-107 MMOL/L Carbon Dioxide Level 18 L 21-32 MMOL/L Anion Gap 14 5-14 MMOL/L Blood Urea Nitrogen 6 L 7-18 MG/DL Creatinine 0.92 0.60-1.30 MG/DL Estimat Glomerular Filtration Rate 122 BUN/Creatinine Ratio 7 Glucose Level 99 70-105 MG/DL Calcium Level 9.7 8.5-10.1 MG/DL Corrected Calcium 9.3 8.5-10.1 MG/DL Total Bilirubin 0.3 0.1-1.0 MG/DL Aspartate Amino Transf (AST/SGOT) 27 5-34 U/L Alanine Aminotransferase (ALT/SGPT) 33 0-55 U/L Alkaline Phosphatase 68 40-136 U/L Total Protein 7.9 6.4-8.2 GM/DL Albumin 4.5 3.2-4.5 GM/DL (KUSHAL HALLMAN) My Orders Orders - KUSHAL HALLMAN Ns Iv 1000 Ml (Sodium Chloride 0.9%) (07/12/22 18:38) Ketorolac Injection (Toradol Injection) (07/12/22 18:45) Ondansetron Injection (Zofran Injectio (07/12/22 18:45) Ed Iv/Invasive Line Start (07/12/22 18:38) Cbc With Automated Diff (07/12/22 18:38) Comprehensive Metabolic Panel (07/12/22 18:38) Chest 1 View, Ap/Pa Only (07/12/22 18:38) Manual Differential (07/12/22 18:50) (KUSHAL HALLMAN) Medications Given in ED Current Medications Medications Dose Ordered Sig/Pierre Route Start Time Stop Time Status Last Admin Dose Admin Ketorolac Tromethamine 15 mg ONCE ONCE IV 07/12/22 18:45 07/12/22 18:46 DC 07/12/22 18:50 15 MG Ondansetron HCl 4 mg ONCE ONCE IVP 07/12/22 18:45 07/12/22 18:46 DC 07/12/22 18:50 4 MG (KUSHAL HALLMAN) Vital Signs/I&O 07/12/22 18:24 Temp 37.1 Pulse 97 Resp 16 B/P (MAP) 139/89 (106) Pulse Ox 96 O2 Delivery Room Air (KUSHAL HALLMAN) Vital Signs/I&O Capillary Refill : (NAIN LAMAR DO) Progress Note : Progress Note PLACED IN ISOLATION ROOM PPE WORN COVID AND FLU TESTING DONE NO COUGH NO DYSPNEA NO HYPOXIA NO FEVER NO GI SYMPTOMS DURING ER STAY (NAIN LAMAR DO) Departure Communication (Admissions) Patient afebrile, non-toxic and in no distress. Covid-19 positive. Patient to be treated symptomatically and will follow up closely with PCP. (KUSHAL HALLMAN) Impression Primary Impression: COVID-19 virus infection Disposition: HOME, SELF-CARE Condition: Stable Departure-Patient Inst. Decision time for Depature: 20:04 (KUSHAL HALLMAN) Referrals: [facility] (PCP/Family) Primary Care Physician Patient Instructions: COVID-19 (DC) Scripts Promethazine/Dextromethorphan (Promethazine-Dm Syrup) 6.25 Mg-15 Mg/5 Ml Syrup 5 ML PO Q6H PRN for COUGH for 7 Days, #240 ML Prov: KUSHAL HALLMAN 07/12/22 Diclofenac Sodium (Diclofenac Sodium) 75 Mg Tablet.dr 75 MG PO BID for 7 Days, #14 TAB Prov: KUSHAL HALLMAN 07/12/22 NAIN LAMAR DO Jul 12, 2022 18:31 KUSHAL HALLMAN Jul 12, 2022 18:50
[2022-07-12] MEDS ORDERED: NS IV 1000 ML 1,000 ML IV STA (18:38)
[2022-07-12] MEDS ORDERED: KETOROLAC 30 MG/ML VIAL IV ONE (18:45)
[2022-07-12] MEDS ORDERED: ONDANSETRON 4 MG/2 ML (SDV) Z0FRAN IVP ONE (18:45)
[2022-07-12 19:00] LABS: BASOPHILS # (AUTO) 0.1 10^3/uL (0.0-0.1); BASOPHILS % (AUTO) 1 % (0-10); EOSINOPHILS # (AUTO) 0.1 10^3/uL (0.0-0.3); EOSINOPHILS % (AUTO) 1 % (0-10); HEMATOCRIT 42 % (40-54); HEMOGLOBIN 14.2 g/dL (13.3-17.7); LYMPHOCYTES # (AUTO) 0.3 10^3/uL (1.0-4.0); LYMPHOCYTES % (AUTO) 3 % (12-44); MEAN CORPUSCULAR HEMOGLOBIN 29 pg (25-34); MEAN CORPUSCULAR HGB CONC 34 g/dL (32-36); MEAN CORPUSCULAR VOLUME 84 fL (80-99); MONOCYTES % (AUTO) 10 % (0-12); NEUTROPHILS # (AUTO) 8.4 10^3/uL (1.8-7.8); NEUTROPHILS % (AUTO) 85 % (42-75); PLATELET COUNT 275 10^3/uL (130-400); WHITE BLOOD COUNT 9.8 10^3/uL (4.3-11.0)
--- NOTE | 2022-07-12 19:17 | Diagnostic Imaging Report ---
INDICATION: Headache, abdominal pain, shortness of air, body aches, fever. TECHNIQUE: Single view chest 7:02 PM. CORRELATION STUDY: None. FINDINGS: Heart size borderline enlarged. Vasculature within normal limits. Mild elevated right diaphragm. Lung hyman overall are clear. IMPRESSION: Negative for acute findings in the chest. Dictated by: Dictated on workstation # [id number]
[2022-07-12 19:33] LABS: EOSINOPHILS % (MANUAL) 2 %; LYMPHOCYTES % (MANUAL) 5 %; MONOCYTES % (MANUAL) 13 %; NEUTROPHILS % (MANUAL) 80 %; RBC MORPH NORMAL
[2022-07-12 19:43] LABS: ALBUMIN 4.5 GM/DL (3.2-4.5); BILIRUBIN,TOTAL 0.3 MG/DL (0.1-1.0); CALCIUM 9.7 MG/DL (8.5-10.1); CREATININE SERUM 0.92 MG/DL (0.60-1.30); TOTAL PROTEIN 7.9 GM/DL (6.4-8.2)
[2022-07-12 19:56] LABS: POTASSIUM 3.7 MMOL/L (3.6-5.0)
[2022-07-12] MEDS ORDERED: DICL75TA2 PO (20:05)
[2022-07-12] MEDS ORDERED: D-ME473S11 PO (20:05)
[2022-07-12 20:10] VITALS: BP 127/66
== END 2022-07-12 20:14 | disposition home or self-care (01) ==
LOC: EDUNIT# 18:19 → ER 18:20
DX: U07.1 COVID-19 (principal); Z28.310 Unvaccinated for COVID-19
CPT/HCPCS: 36415; 71045; 80053; 85007; 85027; 87636

== ENCOUNTER 2022-11-08 19:41 | Observation (INO) | payer MEDICAID ==
[~2022-11-08] VITALS: Ht 180.3 cm; Wt 103.4 kg
[~2022-11-08 19:41] MED LIST changes: +D-ME473S11 PO; +DICL75TA2 PO
[2022-11-08] MEDS ORDERED: KETOROLAC 15 MG/ML VIAL IVP ONE (20:15)
[2022-11-08 20:18] LABS: BASOPHILS # (AUTO) 0.1 10^3/uL (0.0-0.1); BASOPHILS % (AUTO) 0 % (0-10); CLARITY,URINE CLEAR; COLOR,URINE YELLOW; EOSINOPHILS % (AUTO) 0 % (0-10); GLUCOSE, URINE (UA) NEGATIVE (NEGATIVE); HEMATOCRIT 42 % (40-54); HEMOGLOBIN 14.2 g/dL (13.3-17.7); KETONES,URINE 1+ (NEGATIVE); LEUKOCYTE ESTERASE ,URINE TRACE (NEGATIVE); LYMPHOCYTES % (AUTO) 12 % (12-44); MEAN CORPUSCULAR HEMOGLOBIN 29 pg (25-34); MEAN CORPUSCULAR HGB CONC 34 g/dL (32-36); MEAN CORPUSCULAR VOLUME 85 fL (80-99); MEAN PLATELET VOLUME 9.1 fL (9.0-12.2); MONOCYTES # (AUTO) 1.2 10^3/uL (0.0-1.0); MONOCYTES % (AUTO) 7 % (0-12); NEUTROPHILS # (AUTO) 13.5 10^3/uL (1.8-7.8); NEUTROPHILS % (AUTO) 81 % (42-75); NITRITE,URINE NEGATIVE (NEGATIVE); PLATELET COUNT 298 10^3/uL (130-400); PROTEIN,URINE TRACE (NEGATIVE); WHITE BLOOD COUNT 16.8 10^3/uL (4.3-11.0)
[2022-11-08 20:26] LABS: ALBUMIN 4.5 GM/DL (3.2-4.5); POTASSIUM 3.7 MMOL/L (3.6-5.0)
[2022-11-08 20:27] LABS: CALCIUM 9.7 MG/DL (8.5-10.1)
[2022-11-08 20:29] LABS: TOTAL PROTEIN 8.2 GM/DL (6.4-8.2)
[2022-11-08 20:30] LABS: BILIRUBIN,TOTAL 0.7 MG/DL (0.1-1.0)
[2022-11-08] MEDS ORDERED: NS 100 ML (IVPB) BAG IV ONE (20:30)
[2022-11-08] MEDS ORDERED: IOHEXOL 350 MG/ML 100 ML (OMNIPAQUE 350) VIAL IV ONE (20:30)
[2022-11-08 20:32] LABS: CREATININE SERUM 0.85 MG/DL (0.60-1.30)
[2022-11-08 20:38] LABS: BACTERIA,URINE FEW /HPF; SQUAMOUS EPITHELIAL CELL,UR 0-2 /HPF; WBC,URINE RARE /HPF
[2022-11-08 20:39] LABS: BILIRUBIN,URINE 1+ (NEGATIVE)
[2022-11-08 20:43] LABS: LYMPHOCYTES % (MANUAL) 14 %; MONOCYTES % (MANUAL) 6 %; NEUTROPHILS % (MANUAL) 80 %
[2022-11-08 20:44] LABS: RBC MORPH NORMAL
[2022-11-08] MEDS ORDERED: morphine INJ 10 MG/ML 1ML (SYR OR VIAL) IVP STA (20:47)
--- NOTE | 2022-11-08 20:52 | Diagnostic Imaging Report ---
CT Abdomen/pelvis w TECHNIQUE: Multiple contiguous axial images were obtained through the abdomen and pelvis after administration of intravenous contrast. All CT scans use one or more of the following dose optimizing techniques: automated exposure control, MA and/or KvP adjustment based on patient size and exam type or iterative reconstruction. INDICATION: Abdominal pain. COMPARISON: None available. FINDINGS: Lower chest: The lung bases are clear. No pericardial or pleural effusion. Peritoneum: No free fluid or loculated fluid collection to indicate abscess. Liver and biliary system: The liver is normal. The gallbladder is normal. No biliary duct dilation. Spleen and Pancreas: Spleen is normal. The pancreas enhances normally without mass lesion or peripancreatic inflammatory changes. Adrenals: Normal. tract: The kidneys enhance normally without suspicious mass or obstruction. Urinary bladder is distended without wall thickening. Prostate is not enlarged. GI tract: Stomach is decompressed. No bowel obstruction. Wall thickening with inflammation surrounding a few diverticula in the sigmoid colon. There are a few small foci of extraluminal gas along the cranial aspect of one of the inflamed diverticula. Normal appendix. Vasculature and Lymph nodes: Normal caliber aorta. No abdominal or pelvic lymphadenopathy. Musculoskeletal: No concerning osseous lesion. IMPRESSION: 1. Sigmoid colon diverticulitis with microperforation of one of the inflamed diverticula. There are only a few small foci of extraluminal gas. 2. No abscess or bowel obstruction. Case was discussed with Lamont Henry by Dr. Goldberg at 8:47 PM on 11/08/2022. Dictated by: Dictated on workstation # [id number]
[2022-11-08] MEDS ORDERED: LACTATED RINGERS 1,000 ML IV SCH (21:00)
--- NOTE | 2022-11-08 21:13 | ED Abdominal Pain ---
General Chief Complaint: Abdominal/GI Problems Stated Complaint: ABD PAIN Nursing Triage Note: PT AMB TO ED BY POV WITH C/O LOWER ABD PAIN SINCE . PT ALSO C/O N/V BEGINNING YESTERDAY. PT REPORTS "EVERYTHING" MAKES PAIN WORSE INCLUDING MVMT, AMB, BREATHING, AND WHEN HE TRIES TO HAVE A BM. LBM 4-5 DAYS AGO AND "WAS BARELY ABLE TO GO THEN." Source of Information: Patient Exam Limitations: No Limitations (FRANCISCA LEMUS APRN) History of Present Illness Date Seen by Provider: Nov 08, 2022 Time Seen by Provider: 19:55 Initial Comments Patient is a 22-year-old male who presents to the emergency department for evaluation of lower abdominal pain there is been present for 2 to 3 days. Patient states that he has also had some nausea without vomiting. States he had a fever yesterday but none today. Also endorses several days of constipation. Denies any abdominal trauma. Patient denies any medical history. (FRANCISCA LEMUS APRN) Allergies and Home Medications Allergies Coded Allergies: No Known Drug Allergies (Unverified , 07/02/09) Patient Home Medication List Home Medication List Reviewed: Yes (FRANCISCA LEMUS APRN) No Active Prescriptions or Reported Meds Review of Systems Review of Systems Constitutional: no symptoms reported EENTM: No Symptoms Reported Respiratory: No Symptoms Reported Cardiovascular: No Symptoms Reported Gastrointestinal: See HPI, Abdominal Pain Genitourinary: No Symptoms Reported Musculoskeletal: no symptoms reported Skin: no symptoms reported Psychiatric/Neurological: No Symptoms Reported Endocrine: No Symptoms Reported Hematologic/Lymphatic: No Symptoms Reported (FRANCISCA LEMUS APRN) Past Yhenfae-Sdhjmc-Hfhdvk Hx Patient Social History Tobacco Use?: No Use of E-Cig and/or Vaping dev: Yes E-Cig or Vaping type used: Nicotine Use of E-Cig and/or Vaping Darion: Current Everyday User Substance use?: Yes Substance type: Marijuana Substance frequency: Couple times a week Alcohol Use?: No Pt feels they are or have been: No (FRANCISCA LEMUS APRN) Immunizations Up To Date Tetanus Booster (TDap): Less than 5yrs PED Vaccines UTD: Yes Influenza Vaccine Up-to-Date: No; Not Current (FRANCISCA LEMUS APRN) Seasonal Allergies Seasonal Allergies: Yes (FRANCISCA LEMUS APRN) Past Medical History Surgery/Hospitalization HX: ACL REPAIR Surgeries: Yes Orthopedic Respiratory: No Cardiac: No Neurological: No Reproductive Disorders: No Sexually Transmitted Disease: No Gastrointestinal: No Musculoskeletal: No Endocrine: No HEENT: No Cancer: No Psychosocial: No Integumentary: No Blood Disorders: No (FRANCISCA LEMUS APRN) Family Medical History No Pertinent Family Hx (FRANCISCA LEMUS APRN) Physical Exam Vital Signs Vital Signs - First Documented 11/08/22 19:52 Temp 36.9 Pulse 92 Resp 20 B/P (MAP) 135/85 (102) Pulse Ox 97 O2 Delivery Room Air (BRIANDA,NAIN K DO) Vital Signs Capillary Refill : Less Than 3 Seconds (FRANCISCA LEMUS APRN) Height/Weight/BMI Height: 5'0" Weight: 110lbs. oz. 49.656784pw; 30.00 BMI Method:Actual General Appearance: WD/WN, no apparent distress HEENT: PERRL/EOMI, normal ENT inspection, TMs normal, pharynx normal Neck: non-tender, full range of motion, supple, normal inspection Respiratory: chest non-tender, lungs clear, normal breath sounds, no respiratory distress, no accessory muscle use Cardiovascular: regular rate, rhythm Gastrointestinal: normal bowel sounds, soft, tenderness Extremities: normal range of motion, non-tender Neurologic/Psychiatric: no motor/sensory deficits, alert, normal mood/affect, oriented x 3 Skin: normal color, warm/dry (FRANCISCA LEMUS APRN) Procedures/Interventions Suture Size: 3-0 (FRANCISCA LEMUS APRN) Progress/Results/Core Measures Results/Orders Lab Results Laboratory Tests Test 11/08/22 20:08 11/08/22 21:14 Range/Units White Blood Count 16.8 H 4.3-11.0 10^3/uL Red Blood Count 4.94 4.30-5.52 10^6/uL Hemoglobin 14.2 13.3-17.7 g/dL Hematocrit 42 40-54 % Mean Corpuscular Volume 85 80-99 fL Mean Corpuscular Hemoglobin 29 25-34 pg Mean Corpuscular Hemoglobin Concent 34 32-36 g/dL Red Cell Distribution Width 13.1 10.0-14.5 % Platelet Count 298 130-400 10^3/uL Mean Platelet Volume 9.1 9.0-12.2 fL Immature Granulocyte % (Auto) 0 % Neutrophils (%) (Auto) 81 H 42-75 % Lymphocytes (%) (Auto) 12 12-44 % Monocytes (%) (Auto) 7 0-12 % Eosinophils (%) (Auto) 0 0-10 % Basophils (%) (Auto) 0 0-10 % Neutrophils # (Auto) 13.5 H 1.8-7.8 10^3/uL Lymphocytes # (Auto) 2.0 1.0-4.0 10^3/uL Monocytes # (Auto) 1.2 H 0.0-1.0 10^3/uL Eosinophils # (Auto) 0.0 0.0-0.3 10^3/uL Basophils # (Auto) 0.1 0.0-0.1 10^3/uL Immature Granulocyte # (Auto) 0.1 0.0-0.1 10^3/uL Neutrophils % (Manual) 80 % Lymphocytes % (Manual) 14 % Monocytes % (Manual) 6 % Blood Morphology Comment NORMAL Urine Color YELLOW Urine Clarity CLEAR Urine pH 7.0 5-9 Urine Specific Hanna 1.010 L 1.016-1.022 Urine Protein TRACE H NEGATIVE Urine Glucose (UA) NEGATIVE NEGATIVE Urine Ketones 1+ H NEGATIVE Urine Nitrite NEGATIVE NEGATIVE Urine Bilirubin 1+ H NEGATIVE Urine Urobilinogen 0.2 < = 1.0 MG/DL Urine Leukocyte Esterase TRACE H NEGATIVE Urine RBC (Auto) NEGATIVE NEGATIVE Urine RBC NONE /HPF Urine WBC RARE /HPF Urine Squamous Epithelial Cells 0-2 /HPF Urine Crystals NONE /LPF Urine Bacteria FEW H /HPF Urine Casts NONE /LPF Urine Mucus MODERATE H /LPF Urine Culture Indicated YES Sodium Level 138 135-145 MMOL/L Potassium Level 3.7 3.6-5.0 MMOL/L Chloride Level 103 98-107 MMOL/L Carbon Dioxide Level 21 21-32 MMOL/L Anion Gap 14 5-14 MMOL/L Blood Urea Nitrogen 10 7-18 MG/DL Creatinine 0.85 0.60-1.30 MG/DL Estimat Glomerular Filtration Rate 127 BUN/Creatinine Ratio 12 Glucose Level 109 H 70-105 MG/DL Calcium Level 9.7 8.5-10.1 MG/DL Corrected Calcium 9.3 8.5-10.1 MG/DL Total Bilirubin 0.7 0.1-1.0 MG/DL Aspartate Amino Transf (AST/SGOT) 17 5-34 U/L Alanine Aminotransferase (ALT/SGPT) 14 0-55 U/L Alkaline Phosphatase 70 40-136 U/L Total Protein 8.2 6.4-8.2 GM/DL Albumin 4.5 3.2-4.5 GM/DL Lab Scanned Report Referred Lab Report [id number] (NAIN LAMAR DO) Micro Results Microbiology 11/08/22 Urine Culture - Final, Complete See Comments (NAIN LAMAR DO) Vital Signs/I&O 11/08/22 19:52 Temp 36.9 Pulse 92 Resp 20 B/P (MAP) 135/85 (102) Pulse Ox 97 O2 Delivery Room Air (NAIN LAMAR DO) Blood Pressure Mean: 102 Progress Progress Note : Progress Note Patient is nontoxic and well-hydrated on exam. Vital signs are reassuring. Laboratory evaluation notable for leukocytosis. CT of the abdomen pelvis reveals sigmoid diverticulitis with small perforation and extraluminal gas. Spoke with general surgery who recommended admission, n.p.o. status, and initiation of Zosyn and Flagyl. I spoke with family updated on plan of care and they verbalized understanding. Patient will be admitted to general surgery. (FRANCISCA LEMUS APRN) Departure Impression Primary Impression: Perforation of sigmoid colon due to diverticulitis Disposition: ADMITTED INPATIENT Condition: Stable Admissions Decision to Admit Reason: Admit from ER (General) Decision to Admit/Date: Nov 08, 2022 Time/Decision to Admit Time: 21:00 (FRANCISCA LEMUS APRN) Departure-Patient Inst. Referrals: [facility] [place] (PCP/Family) Primary Care Physician Scripts No Active Prescriptions or Reported Meds ATTENDING PHYSICIAN NOTE: I WAS PHYSICALLY PRESENT ER PHYSICIAN, BUT I WAS NOT INVOLVED IN ANY DECISION MAKING OR ANY CARE OF THIS PATIENT, AND I AM NOT COLLABORATING PHYSICIAN. (NAIN LAMAR DO) FRANCISCA LEMUS APRN Nov 08, 2022 21:13 NAIN LAMAR DO Nov 12, 2022 06:41
[2022-11-08] MEDS ORDERED: metroNIDAZOLE 500MG/100ML IVPB 100 ML IV ONE (21:15)
[2022-11-08] MEDS ORDERED: PIPERACILLIN SODIUM/TAZOBACTAM 4.5 GM in NS (IVPB) 100 ML IV ONE (21:15)
[2022-11-08 22:45] VITALS: BP 127/77
[2022-11-08] MEDS: NS IV 1000 ML 1,000 ML IV SCH (23:16)
[2022-11-08] MEDS: morphine INJ 4 MG/ML 1 ML (VIAL/SYRINGE) IV PRN (23:16)
[2022-11-09] VITALS (7 sets, daily range): BP systolic 108–122; BP diastolic 58–74
[2022-11-09] MEDS: morphine INJ 4 MG/ML 1 ML (VIAL/SYRINGE) IV PRN ×7 (03:46→23:24)
[2022-11-09] MEDS: PIPERACILLIN SODIUM/TAZOBACTAM 4.5 GM in NS (IVPB) 100 ML IV SCH ×3 (03:46→18:01)
[2022-11-09] MEDS: metroNIDAZOLE 500 MG/100 ML IVPB (PRE-MIX) IV SCH ×3 (06:13→22:24)
[2022-11-09] MEDS: NS IV 1000 ML 1,000 ML IV SCH ×2 (08:16→16:48)
--- NOTE | 2022-11-09 09:42 | Consultation - Surgery ---
IKRAN NGUYEN 11/09/22 0942: History of Present Illness History of Present Illness Patient Consulted On(tim/time) 11/09/22 09:40 Date Seen by Provider: Nov 09, 2022 Time Seen by Provider: 07:00 History of Present Illness Brenton Mo is a 22 yo male who presented to the ER for evaluation and management of worsening abdominal pain. He states that on , while he was at work, he noticed he was having some abdominal pain and cramping, which would not go away. After returning home, his abdominal pain continued to worsen, and he had not had a bowel movement in 2 days. Allergies and Home Medications Allergies Coded Allergies: No Known Drug Allergies (Unverified , 07/02/09) Patient Home Medication List Diclofenac Sodium (Diclofenac Sodium) 75 Mg Tablet.dr, 75 MG PO BID Prescribed by: Abelardo Deng on 07/12/222004 Promethazine/Dextromethorphan (Promethazine-Dm Syrup) 6.25 Mg-15 Mg/5 Ml Syrup, 5 ML PO Q6H PRN for COUGH Prescribed by: Abelardo Deng on 07/12/222004 Past Vqbpcte-Tvzien-Edzslr Hx Patient Social History Drug of Choice: Denies Type Used: Electronic/Vapor Recent Hopitalizations: No Alcohol Use?: No Substance type: Marijuana Have you traveled recently?: No Immunizations Up To Date Tetanus Booster (TDap): Less than 5yrs PED Vaccines UTD: Yes Seasonal Allergies Seasonal Allergies: Yes Surgeries History of Surgeries: Yes Surgeries: Orthopedic Respiratory History of Respiratory Disorde: No Cardiovascular History of Cardiac Disorders: No Neurological History of Neurological Disord: No Reproductive System Hx Reproductive Disorders: No Sexually Transmitted Disease: No Gastrointestinal History of Gastrointestinal Di: No Musculoskeletal History of Musculoskeletal Dis: No Endocrine History of Endocrine Disorders: No HEENT History of HEENT Disorders: No Cancer History of Cancer: No Psychosocial History of Psychiatric Problem: No Integumentary History of Skin or Integumenta: No Blood Transfusions History of Blood Disorders: No Family Medical History Significant Family History: No Pertinent Family Hx Physical Exam-General Problems Physical Exam Vital Signs Vital Signs - First Documented 11/08/22 19:52 Temp 36.9 Pulse 92 Resp 20 B/P (MAP) 135/85 (102) Pulse Ox 97 O2 Delivery Room Air Capillary Refill : Less Than 3 Seconds Data Review Labs Laboratory Tests 11/08/22 20:08: White Blood Count 16.8H, Red Blood Count 4.94, Hemoglobin 14.2, Hematocrit 42, Mean Corpuscular Volume 85, Mean Corpuscular Hemoglobin 29, Mean Corpuscular Hemoglobin Concent 34, Red Cell Distribution Width 13.1, Platelet Count 298, Mean Platelet Volume 9.1, Immature Granulocyte % (Auto) 0, Neutrophils (%) (Auto) 81H, Lymphocytes (%) (Auto) 12, Monocytes (%) (Auto) 7, Eosinophils (%) (Auto) 0, Basophils (%) (Auto) 0, Neutrophils # (Auto) 13.5H, Lymphocytes # (Auto) 2.0, Monocytes # (Auto) 1.2H, Eosinophils # (Auto) 0.0, Basophils # (Auto) 0.1, Immature Granulocyte # (Auto) 0.1, Neutrophils % (Manual) 80, Lymphocytes % (Manual) 14, Monocytes % (Manual) 6, Blood Morphology Comment NORMAL, Urine Color YELLOW, Urine Clarity CLEAR, Urine pH 7.0, Urine Specific Albin 1.010L, Urine Protein TRACEH, Urine Glucose (UA) NEGATIVE, Urine Ketones 1+H, Urine Nitrite NEGATIVE, Urine Bilirubin 1+H, Urine Urobilinogen 0.2, Urine Leukocyte Esterase TRACEH, Urine RBC (Auto) NEGATIVE, Urine RBC NONE, Urine WBC RARE, Urine Squamous Epithelial Cells 0-2, Urine Crystals NONE, Urine Bacteria FEWH, Urine Casts NONE, Urine Mucus MODERATEH, Urine Culture Indicated YES, Sodium Level 138, Potassium Level 3.7, Chloride Level 103, Carbon Dioxide Level 21, Anion Gap 14, Blood Urea Nitrogen 10, Creatinine 0.85, Estimat Glomerular Filtration Rate 127, BUN/Creatinine Ratio 12, Glucose Level 109H, Calcium Level 9.7, Corrected Calcium 9.3, Total Bilirubin 0.7, Aspartate Amino Transf (AST/SGOT) 17, Alanine Aminotransferase (ALT/SGPT) 14, Alkaline Phosphatase 70, Total Protein 8.2, Albumin 4.5 MYRON RIVERA DO 11/09/22 1256: History of Present Illness History of Present Illness History of Present Illness 22 year old male who began having abdominal pain last . Was at work when it started. Pain over couple days continued to worsen and felt constipated. T ook laxative and no improvement. Continue to worsen so went to ER last night. Patient has had nausea and emesis. Painin the lower abdomen without radiation. Movement and touching abdomen makes worse. NOthing really made better. Ct scan consistent with diverticulitis with microperforation. Allergies and Home Medications Allergies Coded Allergies: No Known Drug Allergies (Unverified , 07/02/09) Patient Home Medication List Home Medication List Reviewed: Yes Diclofenac Sodium (Diclofenac Sodium) 75 Mg Tablet.dr, 75 MG PO BID Prescribed by: Abelardo Deng on 07/12/222004 Promethazine/Dextromethorphan (Promethazine-Dm Syrup) 6.25 Mg-15 Mg/5 Ml Syrup, 5 ML PO Q6H PRN for COUGH Prescribed by: Abelardo Deng on 07/12/222004 Past Uyqsjjv-Dxxyfa-Twhxgd Hx Patient Social History Type Used: Electronic/Vapor Surgeries Surgeries: Orthopedic Respiratory History of Respiratory Disorde: No Cardiovascular History of Cardiac Disorders: No Neurological History of Neurological Disord: No Genitourinary History of Genitourinary Disor: No Gastrointestinal History of Gastrointestinal Di: No Musculoskeletal History of Musculoskeletal Dis: No HEENT History of HEENT Disorders: No Cancer History of Cancer: No Psychosocial History of Psychiatric Problem: No Integumentary History of Skin or Integumenta: No Reviewed Nursing Assessment Reviewed/Agree w Nursing PMH: Yes Family Medical History Significant Family History: No Pertinent Family Hx Review of Systems-General Constitutional: No chills, No diaphoresis, No fever EENTM: No blurred vision, No double vision Respiratory: No cough, No dyspnea on exertion Cardiovascular: No chest pain, No palpitations Gastrointestinal: abdominal pain (LLQ), nausea, vomiting Genitourinary: No decreased output, No discharge Musculoskeletal: No back pain, No joint pain Skin: No change in color, No change in hair/nails Psychiatric/Neurological: Denies Anxiety, Denies Depressed, Denies Emotional Problems All Other Systems Reviewed Negative Unless Noted: Yes (Negative excepted noted.) Physical Exam-General Problems Physical Exam General Appearance: WD/WN, no apparent distress HEENT: PERRL/EOMI, normal ENT inspection Neck: non-tender, supple Respiratory: chest non-tender, no respiratory distress, no accessory muscle use Cardiovascular: regular rate, rhythm, no JVD Gastrointestinal: soft, tenderness (llq) Rectal: deferred Back: no CVA tenderness, no vertebral tenderness Extremities: non-tender, normal inspection, no pedal edema Neurologic/Psychiatric: alert, normal mood/affect, oriented x 3 Skin: normal color, warm/dry Lymphatic: no adenopathy Assessment/Plan Assessment/Plan Assessment/Plan llq abdominal pain nauea/vomiting diverticulitis with microperforation npo iv fluids Zosyn/flagyl will need colonoscopy outpatient once resolved, unless needs surgical intervention patient understands and agrees with plan. Supervisory-Addendum Brief Verification & Attestation Participated in pt care: history, MDM, physical Personally performed: exam, history, MDM, supervision of care Care discussed with: Medical Student Procedures: n/a Results interpretation: Verified all documentation Verification and Attestation of Medical Student E/M Service A medical student performed and documented this service in my presence. I reviewed and verified all information documented by the medical student and made modifications to such information, when appropriate. I personally performed the physical exam and medical decision making. Myron Rivera, Nov 09, 2022,12:56 KIRAN NGUYEN Nov 09, 2022 09:42 MYRON RIVERA DO Nov 09, 2022 12:56
[2022-11-09 10:54] LABS: HEMATOCRIT 38 % (40-54); HEMOGLOBIN 12.5 g/dL (13.3-17.7); MEAN CORPUSCULAR HEMOGLOBIN 29 pg (25-34); MEAN CORPUSCULAR HGB CONC 33 g/dL (32-36); MEAN CORPUSCULAR VOLUME 87 fL (80-99); MEAN PLATELET VOLUME 9.2 fL (9.0-12.2); PLATELET COUNT 253 10^3/uL (130-400); WHITE BLOOD COUNT 14.9 10^3/uL (4.3-11.0)
[2022-11-09 11:05] LABS: POTASSIUM 3.9 MMOL/L (3.6-5.0)
[2022-11-09 11:10] LABS: CREATININE SERUM 0.86 MG/DL (0.60-1.30)
--- NOTE | 2022-11-09 12:07 | Consultation - Hospitalist ---
HPI History of Present Illness: HPI/Chief Complaint Patient is a 22-year-old male with no past medical history who presented to the emergency department due to abdominal pain. He states that symptoms been going on for roughly 3 days. He has been quite nauseous but has not had any vomiting. He also has not had a bowel movement for multiple days but is passing gas. Imaging in the emergency department revealed diverticulitis with perforation of the sigmoid colon. He is admitted to the surgical service and I am consulted for medical management. We discussed treatment with IV antibiotics and monitoring. He is agreeable to this plan but understands that possible surgical intervention may be warranted. Date Seen 11/09/22 Attending Physician [facility] PCP Admitting Physician: Myron Santiago DO Attending Physician: Myron Santiago DO Referring Physician Date of Admission Nov 08, 2022 at 21:14 Home Medications & Allergies Home Medications Reviewed patient Home Medication Reconciliation performed by pharmacy medication reconciliations smt technician and/or nursing. Patients Allergies have been reviewed. Allergies Allergies Coded Allergies No Known Drug Allergies (Unverified07/02/09) Past Jofrzll-Bhufjf-Bkyvsj Hx Patient Social History Tobacco Use?: No Use of E-Cig and/or Vaping dev: Yes E-Cig or Vaping type used: Nicotine Use of E-Cig and/or Vaping Darion: Current Everyday User Substance use?: No Substance type: Marijuana Substance frequency: Couple times a week Alcohol Use?: No Pt feels they are or have been: No Immunizations Up To Date Tetanus Booster (TDap): Unknown PED Vaccines UTD: Yes Seasonal Allergies Seasonal Allergies: Yes Current Status Advance Directives: No Communicates: Verbally Primary Language: Georgian Preferred Spoken Language: Georgian Is interpretation needed?: No Implanted or Applied Medical D: None Past Medical History Surgeries: Orthopedic Sexually Transmitted Disease: No Blood Disorders: No Family Medical History No Pertinent Family Hx Review of Systems Constitutional: No chills; fever EENTM: no symptoms reported Respiratory: no symptoms reported Cardiovascular: no symptoms reported Gastrointestinal: see HPI Genitourinary: no symptoms reported Musculoskeletal: no symptoms reported Skin: no symptoms reported Psychiatric/Neurological: No Symptoms Reported Physical Exam Physical Exam Vital Signs Vital Signs - First Documented 11/08/22 19:52 Temp 36.9 Pulse 92 Resp 20 B/P (MAP) 135/85 (102) Pulse Ox 97 O2 Delivery Room Air Capillary Refill : Less Than 3 Seconds Height, Weight, BMI Height: 5'0" Weight: 110lbs. oz. 49.345797tj; 31.80 BMI Method:Actual General Appearance: No Apparent Distress, WD/WN, Obese HEENT: PERRL/EOMI, Moist Mucous Membranes Neck: Normal Inspection, Supple Respiratory: Lungs Clear, No Accessory Muscle Use, No Respiratory Distress Cardiovascular: Regular Rate, Rhythm, No JVD, No Murmur Gastrointestinal: Normal Bowel Sounds, Soft; No Distended; Tenderness (left lower quadarant) Extremity: Normal Capillary Refill, No Calf Tenderness, No Pedal Edema Neurologic/Psychiatric: Alert, Oriented x3, Normal Mood/Affect Skin: Normal Color, Warm/Dry Results Results/Procedures Labs Laboratory Tests 11/08/22 20:08 11/09/22 10:20 Patient resulted labs reviewed. Imaging: Reviewed Imaging Report Imaging [facility] [place] NAME: KENJITARHSA D [facility] REC#: [id number] PT STATUS: REG ER : 2000 PHYSICIAN: LAMONT HENRY APRN ADMIT DATE: 11/08/22/ER Signed Date of Exam:11/08/22 CT ABDOMEN/PELVIS W CT Abdomen/pelvis w TECHNIQUE: Multiple contiguous axial images were obtained through the abdomen and pelvis after administration of intravenous contrast. All CT scans use one or more of the following dose optimizing techniques: automated exposure control, MA and/or KvP adjustment based on patient size and exam type or iterative reconstruction. INDICATION: Abdominal pain. COMPARISON: None available. FINDINGS: Lower chest: The lung bases are clear. No pericardial or pleural effusion. Peritoneum: No free fluid or loculated fluid collection to indicate abscess. Liver and biliary system: The liver is normal. The gallbladder is normal. No biliary duct dilation. Spleen and Pancreas: Spleen is normal. The pancreas enhances normally without mass lesion or peripancreatic inflammatory changes. Adrenals: Normal. tract: The kidneys enhance normally without suspicious mass or obstruction. Urinary bladder is distended without wall thickening. Prostate is not enlarged. GI tract: Stomach is decompressed. No bowel obstruction. Wall thickening with inflammation surrounding a few diverticula in the sigmoid colon. There are a few small foci of extraluminal gas along the cranial aspect of one of the inflamed diverticula. Normal appendix. Vasculature and Lymph nodes: Normal caliber aorta. No abdominal or pelvic lymphadenopathy. Musculoskeletal: No concerning osseous lesion. IMPRESSION: 1. Sigmoid colon diverticulitis with microperforation of one of the inflamed diverticula. There are only a few small foci of extraluminal gas. 2. No abscess or bowel obstruction. Case was discussed with Lamont Henry by Dr. Goldberg at 8:47 PM on 11/08/2022. Dictated by: Dictated on workstation # [id number] Dict: 11/08/222042 Trans: 11/08/222058 [facility] [id number] Interpreted by: CLARIBEL GOLDBERG MD Electronically signed by: CLARIBEL GOLDBERG MD 11/08/222058 Assessment/Plan Assessment and Plan Assess & Plan/Chief Complaint Diverticulitis with perforation Management per primary Will increase frequency of pain medication NPO IVF Zosyn DVT ppx: SCDs today, lovenox if not surgical intervention warranted Will round prn- please call with any questions. Diagnosis/Problems Diagnosis/Problems (1) Obesity (2) Perforation of sigmoid colon due to diverticulitis Status: Acute NADIA CUEVAS MD Nov 09, 2022 12:07
[2022-11-09] MEDS ORDERED: ACETAMINOPHEN 325 MG TABLET ONE (17:57)
[2022-11-09] MEDS ORDERED: ACETAMINOPHEN 325 MG TABLET PO PRN (18:00)
[2022-11-10] VITALS (7 sets, daily range): BP systolic 115–137; BP diastolic 66–84
[2022-11-10] MEDS: morphine INJ 4 MG/ML 1 ML (VIAL/SYRINGE) IV PRN ×3 (01:55→19:55)
[2022-11-10] MEDS: PIPERACILLIN SODIUM/TAZOBACTAM 4.5 GM in NS (IVPB) 100 ML IV SCH ×3 (02:33→19:38)
[2022-11-10] MEDS: NS IV 1000 ML 1,000 ML IV SCH ×2 (05:50→15:24)
[2022-11-10 06:06] LABS: HEMATOCRIT 38 % (40-54); HEMOGLOBIN 12.4 g/dL (13.3-17.7); MEAN CORPUSCULAR HEMOGLOBIN 29 pg (25-34); MEAN CORPUSCULAR HGB CONC 33 g/dL (32-36); MEAN CORPUSCULAR VOLUME 87 fL (80-99); MEAN PLATELET VOLUME 9.2 fL (9.0-12.2); PLATELET COUNT 270 10^3/uL (130-400); WHITE BLOOD COUNT 12.5 10^3/uL (4.3-11.0)
[2022-11-10 06:23] LABS: CALCIUM 8.9 MG/DL (8.5-10.1); CREATININE SERUM 0.83 MG/DL (0.60-1.30); POTASSIUM 3.6 MMOL/L (3.6-5.0)
[2022-11-10] MEDS: metroNIDAZOLE 500 MG/100 ML IVPB (PRE-MIX) IV SCH ×3 (06:37→22:14)
--- NOTE | 2022-11-10 07:00 | Progress Note - Surgery ---
PATRICKKIRAN 11/10/22 0700: Subjective Date Seen by a Provider: Nov 10, 2022 Subjective/Events-last exam Upon follow-up for diverticulitis, Brenton was laying supine in bed, and appears comfortable. He states that his pain is improved from yesterday, and is presently a 5-6/10 on palpation, especially in the LLQ, and 4/10 at rest. He states that he had a bowel movement this morning, as well. He does have an appetite, but is NPO given the above. He denies any nausea, vomiting, fever, or chills today. Review of Systems General: No Chills, No Night Sweats HEENT: No Head Aches, No Visual Changes, No Eye Pain Pulmonary: No Dyspnea, No Cough Cardiovascular: No: Chest Pain, Palpitations Gastrointestinal: Abdominal Pain; No: Nausea, Vomiting Genitourinary: No Dysuria, No Frequency Musculoskeletal: No: neck pain, shoulder pain Neurological: No: Weakness, Numbness Focused Exam Respiratory: Chest Non Tender, Lungs Clear, Normal Breath Sounds, No Accessory Muscle Use, No Respiratory Distress Cardiovascular: Regular Rate, Rhythm, No Edema, No Gallop, No JVD, No Murmur, Normal Peripheral Pulses Capillary Refill: Less Than 3 Seconds Peripheral Pulses: 2+ Radial Pulses (L) Skin: normal color, warm/dry Objective Exam Vital Signs Date Time Temp Pulse Resp B/P (MAP) Pulse Ox O2 Delivery O2 Flow Rate FiO2 11/10/22 03:13 36.8 93 18 115/68 (84) 95 Room Air 11/09/22 23:28 37.0 94 18 109/74 (86) 96 Room Air 11/09/22 19:50 Room Air 11/09/22 19:07 36.4 99 18 118/59 (78) 96 Room Air 11/09/22 19:07 36.4 99 18 118/59 (78) 96 Room Air 11/09/22 15:08 36.7 89 20 122/58 (79) 96 Room Air 11/09/22 11:38 37.5 96 18 118/58 (78) 97 Room Air 11/09/22 07:44 Room Air 11/09/22 07:37 37.2 93 18 108/60 (76) 97 Room Air I & O 11/10/22 07:00 Intake Total 2500 ml Balance 2500 ml Capillary Refill : Less Than 3 Seconds General Appearance: No Apparent Distress, WD/WN, Obese HEENT: PERRL/EOMI, Moist Mucous Membranes Neck: Normal Inspection, Supple Respiratory: Lungs Clear, No Accessory Muscle Use, No Respiratory Distress Cardiovascular: Regular Rate, Rhythm, No JVD, No Murmur Gastrointestinal: soft, tenderness (llq) Extremity: Normal Capillary Refill, No Calf Tenderness, No Pedal Edema Neurologic/Psychiatric: Alert, Oriented x3, Normal Mood/Affect Skin: Normal Color, Warm/Dry Results Lab Laboratory Tests 11/09/22 10:20: White Blood Count 14.9H, Red Blood Count 4.34, Hemoglobin 12.5L, Hematocrit 38L, Mean Corpuscular Volume 87, Mean Corpuscular Hemoglobin 29, Mean Corpuscular Hemoglobin Concent 33, Red Cell Distribution Width 13.3, Platelet Count 253, Mean Platelet Volume 9.2, Sodium Level 139, Potassium Level 3.9, Chloride Level 106, Carbon Dioxide Level 21, Anion Gap 12, Blood Urea Nitrogen 12, Creatinine 0.86, Estimat Glomerular Filtration Rate 126, BUN/Creatinine Ratio 14, Glucose Level 80, Calcium Level 9.0 11/10/22 05:25: White Blood Count 12.5H, Red Blood Count 4.34, Hemoglobin 12.4L, Hematocrit 38L, Mean Corpuscular Volume 87, Mean Corpuscular Hemoglobin 29, Mean Corpuscular Hemoglobin Concent 33, Red Cell Distribution Width 13.0, Platelet Count 270, Mean Platelet Volume 9.2, Sodium Level 138, Potassium Level 3.6, Chloride Level 104, Carbon Dioxide Level 20L, Anion Gap 14, Blood Urea Nitrogen 9, Creatinine 0.83, Estimat Glomerular Filtration Rate 128, BUN/Creatinine Ratio 11, Glucose Level 63L, Calcium Level 8.9 Assessment/Plan Assessment/Plan Assessment/Plan llq abdominal pain nauea/vomiting diverticulitis with microperforation Leukocytosis npo iv fluids Zosyn/flagyl Leukocytosis is trending down, with most recent WBC count of 12.5, which is decreased from 11/09 (16.5). will need colonoscopy outpatient once resolved, unless needs surgical intervention patient understands and agrees with plan. MYRON SANTIAGO DO 11/10/22 8448: Subjective Subjective/Events-last exam Patient less pain in left lower quadrant but still there. about 5-6 /10. Patient feeling hungry. No nausea or emesis. WBC trending down. No fever. Denies sweats chills shortness of breath or chest pain. Objective Exam General Appearance: No Apparent Distress, Obese HEENT: PERRL/EOMI, Normal ENT Inspection Neck: Normal Inspection, Supple Respiratory: Chest Non Tender, No Accessory Muscle Use, No Respiratory Distress Cardiovascular: Regular Rate, Rhythm, No JVD Gastrointestinal: soft, tenderness (llq slightly better than yesterday) Extremity: Normal Capillary Refill, Non Tender, No Calf Tenderness Neurologic/Psychiatric: Alert, Oriented x3 Skin: Normal Color, Warm/Dry Lymphatic: No Adenopathy Assessment/Plan Assessment/Plan Assessment/Plan llq abdominal pain nauea/vomiting diverticulitis with microperforation Leukocytosis npo iv fluids Zosyn/flagyl Leukocytosis is trending down, with most recent WBC count of 12.5, which is decreased from 11/09 (16.5). continue conservative management will need colonoscopy outpatient once resolved, unless needs surgical intervention patient understands and agrees with plan. Supervisory-Addendum Brief Verification & Attestation Participated in pt care: history, MDM, physical Personally performed: exam, history, MDM, supervision of care Care discussed with: Medical Student Procedures: n/a Results interpretation: Verified all documentation Verification and Attestation of Medical Student E/M Service A medical student performed and documented this service in my presence. I reviewed and verified all information documented by the medical student and made modifications to such information, when appropriate. I personally performed the physical exam and medical decision making. Myron Santiago, Nov 10, 2022,16:54 KIRAN NGUYEN Nov 10, 2022 07:00 MYRON SANTIAGO DO Nov 10, 2022 16:54
[2022-11-11] MEDS: PIPERACILLIN SODIUM/TAZOBACTAM 4.5 GM in NS (IVPB) 100 ML IV SCH ×3 (03:32→18:10)
[2022-11-11 03:36] VITALS: BP 126/73
[2022-11-11] MEDS: morphine INJ 4 MG/ML 1 ML (VIAL/SYRINGE) IV PRN (04:20)
[2022-11-11] MEDS: metroNIDAZOLE 500 MG/100 ML IVPB (PRE-MIX) IV SCH ×3 (05:46→21:47)
--- NOTE | 2022-11-11 07:01 | Progress Note - Surgery ---
PATRICKKIRAN 11/11/22 0701: Subjective Date Seen by a Provider: Nov 11, 2022 Time Seen by a Provider: 06:56 Subjective/Events-last exam Upon follow-up for diverticulitis, Brenton is laying supine in bed with minimal pain, which he rates a 1/10. He states that he feels significantly better today--LLQ tenderness has diminished quite a bit; palpating the area elicits a 3/10 on the pain scale, and is slightly tender in character. Patient reports that it's difficult to tell if the pain is from the diverticulitis or hunger pangs. He had a bowel movement last night, and endorses an intact appetite. He is eager to progress his diet. Review of Systems General: No Chills, No Night Sweats HEENT: No Head Aches, No Visual Changes Pulmonary: No Dyspnea, No Cough Cardiovascular: No: Chest Pain, Palpitations Gastrointestinal: Abdominal Pain (LLQ-Markedly diminished); No: Nausea, Vomiting Genitourinary: No Dysuria, No Frequency Musculoskeletal: No: neck pain, shoulder pain Neurological: No: Weakness, Numbness Focused Exam Respiratory: Chest Non Tender, Lungs Clear, Normal Breath Sounds, No Accessory Muscle Use, No Respiratory Distress Cardiovascular: Regular Rate, Rhythm, No Edema, No Gallop, No JVD, No Murmur, Normal Peripheral Pulses Capillary Refill: Less Than 3 Seconds Peripheral Pulses: 2+ Radial Pulses (R), 2+ Radial Pulses (L) Skin: normal color, warm/dry Objective Exam Vital Signs Date Time Temp Pulse Resp B/P (MAP) Pulse Ox O2 Delivery O2 Flow Rate FiO2 11/11/22 03:36 36.3 83 16 126/73 (90) 97 Room Air 11/10/22 23:12 36.7 90 16 129/72 (91) 95 Room Air 11/10/22 19:58 Room Air 11/10/22 19:01 36.5 92 18 137/83 (101) 96 Room Air 11/10/22 15:28 36.7 83 20 129/84 (99) 100 Room Air 11/10/22 11:33 36.1 88 20 126/70 (88) 98 11/10/22 11:18 36.0 83 18 119/71 (87) 96 11/10/22 08:00 95 Room Air 11/10/22 07:25 36.5 95 18 117/66 (83) 95 I & O 11/11/22 07:00 Intake Total 1500 ml Balance 1500 ml Capillary Refill : Less Than 3 Seconds General Appearance: No Apparent Distress, Obese HEENT: PERRL/EOMI, Normal ENT Inspection Neck: Normal Inspection, Supple Respiratory: Chest Non Tender, Lungs Clear, Normal Breath Sounds, No Accessory Muscle Use, No Respiratory Distress Cardiovascular: Regular Rate, Rhythm, No Edema, No Gallop, No JVD, No Murmur, Normal Peripheral Pulses Peripheral Pulses: 2+ Radial Pulses (L) Gastrointestinal: normal bowel sounds, soft, no organomegaly, tenderness (LLQ- Markedly diminished) Extremity: Normal Capillary Refill, Non Tender, No Calf Tenderness Neurologic/Psychiatric: Alert, Oriented x3, No Motor/Sensory Deficits, Normal Mood/Affect, 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 => Labs for 11/11 were not ordered Consider progressing diet to clears Continue with conservative management Will need colonoscopy outpatient once resolved, unless needs surgical intervention patient understands and agrees with plan. MYRON SANTIAGO DO 11/11/22 3286: Subjective Subjective/Events-last exam Feeling better. Minimal pain now. No nausea or emesis. WBC trending down. Denies new complaints except being hungry. Denies fever sweats chills shortness of breath or chest pain. Objective Exam General Appearance: No Apparent Distress, Obese HEENT: PERRL/EOMI Neck: Normal Inspection, Supple Respiratory: Chest Non Tender, No Accessory Muscle Use, No Respiratory Distress Cardiovascular: Regular Rate, Rhythm, No JVD Gastrointestinal: soft, no organomegaly, tenderness (LLQ-Minute) Extremity: Normal Inspection, Non Tender, No Calf Tenderness Neurologic/Psychiatric: Alert, Oriented x3 Skin: Normal Color, Warm/Dry Lymphatic: No Adenopathy Assessment/Plan Assessment/Plan Assessment/Plan llq abdominal pain nauea/vomiting diverticulitis with microperforation Leukocytosis iv fluids On Zosyn/flagyl Tylenol for pain control Leukocytosis is trending down, npo advance to clears Continue with conservative management Will need colonoscopy outpatient once resolved, unless needs surgical intervention patient understands and agrees with plan. Supervisory-Addendum Brief Verification & Attestation Participated in pt care: history, MDM, physical Personally performed: exam, history, MDM, supervision of care Care discussed with: Medical Student Procedures: n/a Results interpretation: Verified all documentation Verification and Attestation of Medical Student E/M Service A medical student performed and documented this service in my presence. I reviewed and verified all information documented by the medical student and made modifications to such information, when appropriate. I personally performed the physical exam and medical decision making. Myron Santiago, Nov 11, 2022,23:48 KIRAN NGUYEN Nov 11, 2022 07:01 MYRON SANTIAGO DO Nov 11, 2022 23:48
[2022-11-11 08:07] VITALS: BP 136/75
[2022-11-11 08:07] LABS: HEMATOCRIT 39 % (40-54); HEMOGLOBIN 13.2 g/dL (13.3-17.7); MEAN CORPUSCULAR HEMOGLOBIN 29 pg (25-34); MEAN CORPUSCULAR HGB CONC 34 g/dL (32-36); MEAN CORPUSCULAR VOLUME 86 fL (80-99); MEAN PLATELET VOLUME 8.7 fL (9.0-12.2); PLATELET COUNT 303 10^3/uL (130-400); WHITE BLOOD COUNT 10.8 10^3/uL (4.3-11.0)
[2022-11-11 08:25] LABS: CALCIUM 9.3 MG/DL (8.5-10.1); CREATININE SERUM 0.84 MG/DL (0.60-1.30); POTASSIUM 3.7 MMOL/L (3.6-5.0)
[2022-11-11 11:03] VITALS: BP 135/64
[2022-11-11] MEDS: NS IV 1000 ML 1,000 ML IV SCH ×2 (11:06→21:43)
[2022-11-11 15:34] VITALS: BP 141/72
[2022-11-11 19:02] VITALS: BP 129/69
[2022-11-12 04:00] VITALS: BP 129/70
[2022-11-12 06:36] LABS: HEMATOCRIT 39 % (40-54); HEMOGLOBIN 13.2 g/dL (13.3-17.7); MEAN CORPUSCULAR HEMOGLOBIN 29 pg (25-34); MEAN CORPUSCULAR HGB CONC 34 g/dL (32-36); MEAN CORPUSCULAR VOLUME 84 fL (80-99); MEAN PLATELET VOLUME 9.2 fL (9.0-12.2); PLATELET COUNT 318 10^3/uL (130-400)
[2022-11-12 06:46] LABS: POTASSIUM 3.3 MMOL/L (3.6-5.0)
[2022-11-12 06:47] LABS: CALCIUM 9.4 MG/DL (8.5-10.1)
[2022-11-12 06:52] LABS: CREATININE SERUM 0.77 MG/DL (0.60-1.30)
[2022-11-12] MEDS: PIPERACILLIN SODIUM/TAZOBACTAM 4.5 GM in NS (IVPB) 100 ML IV SCH ×2 (07:46→11:35)
--- NOTE | 2022-11-12 07:55 | Progress Note - Surgery ---
PATRICKKIRAN 11/12/22 0755: Subjective Date Seen by a Provider: Nov 12, 2022 Time Seen by a Provider: 07:51 Subjective/Events-last exam Upon follow-up for diverticulitis, Brenton is sleeping in bed, and did not arouse to my questioning. Per nursing, he has been doing well, and reports very minimal pain. Continues to have bowel movements and intact appetite. Review of Systems HEENT: No Visual Changes, No Eye Pain Pulmonary: No Dyspnea, No Cough Cardiovascular: No: Chest Pain, Palpitations Gastrointestinal: Abdominal Pain (LLQ, very minimal) Genitourinary: No Dysuria, No Frequency Musculoskeletal: No: neck pain, shoulder pain Neurological: No: Weakness, Numbness Focused Exam Respiratory: Chest Non Tender, Lungs Clear, Normal Breath Sounds, No Accessory Muscle Use, No Respiratory Distress Cardiovascular: Regular Rate, Rhythm, No Edema, No Gallop, No Murmur Capillary Refill: Less Than 3 Seconds Peripheral Pulses: 2+ Radial Pulses (R), 2+ Radial Pulses (L) Skin: normal color, warm/dry Objective Exam Vital Signs Date Time Temp Pulse Resp B/P (MAP) Pulse Ox O2 Delivery O2 Flow Rate FiO2 11/12/22 04:00 37.2 74 17 129/70 (89) 97 Room Air 11/12/22 00:00 11/11/22 20:00 98 Room Air 11/11/22 19:02 36.3 69 18 129/69 (89) 96 Room Air 11/11/22 15:34 37.6 66 20 141/72 (95) 97 Room Air 11/11/22 11:03 36.4 69 18 135/64 (87) Room Air 11/11/22 08:07 36.6 88 20 136/75 (95) 94 Room Air 11/11/22 08:00 97 Room Air I & O 11/12/22 07:00 Intake Total 2072 ml Balance 2072 ml Capillary Refill : Less Than 3 Seconds General Appearance: No Apparent Distress, Obese HEENT: PERRL/EOMI, TMs Normal Neck: Normal Inspection, Supple Respiratory: Chest Non Tender, Lungs Clear, Normal Breath Sounds, No Accessory Muscle Use, No Respiratory Distress Cardiovascular: Regular Rate, Rhythm, No Edema, No Gallop, No JVD Peripheral Pulses: 2+ Radial Pulses (R), 2+ Radial Pulses (L) Gastrointestinal: soft, no organomegaly, tenderness (LLQ, very minimal) Extremity: Normal Inspection, Non Tender, No Calf Tenderness Neurologic/Psychiatric: Alert, Oriented x3 Skin: Normal Color, Warm/Dry Lymphatic: No Adenopathy Results Lab Laboratory Tests 11/11/22 07:57: White Blood Count 10.8, Red Blood Count 4.54, Hemoglobin 13.2L, Hematocrit 39L, Mean Corpuscular Volume 86, Mean Corpuscular Hemoglobin 29, Mean Corpuscular Hemoglobin Concent 34, Red Cell Distribution Width 12.6, Platelet Count 303, Mean Platelet Volume 8.7L, Sodium Level 135, Potassium Level 3.7, Chloride Level 102, Carbon Dioxide Level 19L, Anion Gap 14, Blood Urea Nitrogen 7, Creatinine 0.84, Estimat Glomerular Filtration Rate 127, BUN/Creatinine Ratio 8, Glucose Level 68L, Calcium Level 9.3 11/12/22 06:30: White Blood Count 9.0, Red Blood Count 4.60, Hemoglobin 13.2L, Hematocrit 39L, Mean Corpuscular Volume 84, Mean Corpuscular Hemoglobin 29, Mean Corpuscular Hemoglobin Concent 34, Red Cell Distribution Width 12.6, Platelet Count 318, Mean Platelet Volume 9.2, Sodium Level 139, Potassium Level 3.3L, Chloride Level 106, Carbon Dioxide Level 15L, Anion Gap 18H, Blood Urea Nitrogen 5L, Creatinine 0.77, Estimat Glomerular Filtration Rate 131, BUN/Creatinine Ratio 6, Glucose Level 95, Calcium Level 9.4 Microbiology 11/08/22 Urine Culture - Final, Complete See Comments Assessment/Plan Assessment/Plan Assessment/Plan llq abdominal pain nauea/vomiting diverticulitis with microperforation Leukocytosis iv fluids On Zosyn/flagyl Tylenol for pain control Leukocytosis has resolved On clears, tolerating well Continue with conservative management Will need colonoscopy outpatient once resolved, unless needs surgical intervention patient understands and agrees with plan. MYRON SANTIAGO DO 11/12/22 1157: Subjective Subjective/Events-last exam Feeling well. No pain. Tolerating clears. WBC normal. Denies n/v fever sweats chills shortness of breath or chest pain. Objective Exam General Appearance: No Apparent Distress, Obese HEENT: PERRL/EOMI, TMs Normal Neck: Normal Inspection, Supple Respiratory: Chest Non Tender, No Accessory Muscle Use, No Respiratory Distress Cardiovascular: Regular Rate, Rhythm, No JVD Gastrointestinal: soft, no organomegaly; No tenderness Extremity: Normal Inspection, Non Tender, No Calf Tenderness Neurologic/Psychiatric: Alert, Oriented x3 Skin: Normal Color, Warm/Dry Lymphatic: No Adenopathy Assessment/Plan Assessment/Plan Assessment/Plan llq abdominal pain nausea/vomiting diverticulitis with microperforation Leukocytosis iv fluids On Zosyn/flagyl convert to Augmentin Leukocytosis has resolved On clears, tolerating well Continue with conservative management Will need colonoscopy outpatient once resolved, unless needs surgical intervention patient wanting to go home planc dc home. Final Diagnosis llq abdominal pain nausea/vomiting diverticulitis with microperforation Leukocytosis Supervisory-Addendum Brief Verification & Attestation Participated in pt care: history, MDM, physical Personally performed: exam, history, MDM, supervision of care Care discussed with: Medical Student Procedures: n/a Results interpretation: Verified all documentation Verification and Attestation of Medical Student E/M Service A medical student performed and documented this service in my presence. I reviewed and verified all information documented by the medical student and made modifications to such information, when appropriate. I personally performed the physical exam and medical decision making. Myron Santiago, Nov 12, 2022,11:57 KIRAN NGUYEN Nov 12, 2022 07:55 MYRON SANTIAGO DO Nov 12, 2022 11:57
[2022-11-12 08:01] VITALS: BP 132/77
[2022-11-12] MEDS: metroNIDAZOLE 500 MG/100 ML IVPB (PRE-MIX) IV SCH (08:31)
[2022-11-12] MEDS: NS IV 1000 ML 1,000 ML IV SCH (08:31)
[2022-11-12 11:11] VITALS: BP 126/60
[2022-11-12] MEDS ORDERED: AMOX1TAB12 PO (11:52)
--- NOTE | 2022-11-12 11:54 | Discharge Inst-Simple/Standard ---
Discharge Inst-Standard Discharge Medications New, Converted or Re-Newed RX: Transmitted to Pharmacy Patient Instructions/Follow Up Plan of Care/Instructions/FU: 3 weeks Pamela Activity as Tolerated: No Discharge Diet: Liquid Diet (for 2 more days, if no pain then slowly advance diet as tolerates.) Other Inst to Patient Follow up Appt: Make appointment for 3 week. Instructions: No lifting greater than 10 pounds. No strenuous activity. Use incentive spirometer at home as directed. No Smoking Symptoms to Report: Appetite Changes, Extremity Discoloration, Numbness/Tingling, Swelling Increased, Bleeding Excessive, Eyesight Changes, Pain Increased, Urine Color Change, Constipation(Persistent), Fever over 101 degree F, Pain/Pressure in chest, Urinating Difficulty, Cough Up/Vomit Blood, Heart Beat Irreg/Pounding, Pain/Pressure in jaw, Vaginal Bleeding Increase, Cramps in feet or legs, Lightheadedness, Pain/Pressure in shoulder, Diarrhea(Persistent), Memory Changes Suddenly, Questions/Concerns, Weight gain consecutive days, Dizziness/Fainting, Nausea/Vomiting, Shortness of Breath, Weight gain over 2 pounds If questions or concerns contact your physician Or seek help at emergency department. TAYLOR RIVERA DO Nov 12, 2022 11:54
[2022-11-12] MEDS ORDERED: AUGMENTIN 875 MG TAB (AMOXICILLIN/CLAVULANATE) PO SCH (12:00)
[2022-11-12 13:00] VITALS: BP 126/60
== END 2022-11-12 13:00 | disposition home or self-care (01) ==
LOC: EDUNIT# 19:41 → ER 19:42 → 4TH 21:14 → UNDOADMOB 21:14 → 4TH 22:58 → UNDODISOB 11-12 13:00
PROVIDERS: ADMIT Surgery; ATTEND Surgery
DX: K57.20 Diverticulitis of large intestine with perforation and abscess without bleeding (principal); E66.9 Obesity, unspecified; Z68.31 Body mass index [BMI] 31.0-31.9, adult
CPT/HCPCS: 36415; 74177; 80048; 80053; 81000; 85007; 85027; 87088; 96361; 96365; 96366; 96367; 96375; 96376; G0378

== ENCOUNTER 2023-01-14 05:41 | Outpatient (CLI) | payer MEDICAID ==
[~2023-01-14] VITALS: Ht 177.8 cm; Wt 103.1 kg
[~2023-01-14 05:41] MED LIST changes: +AMOX1TAB12 PO
== END 2023-01-21 09:01 | disposition home or self-care (01) ==
LOC: PREOP 05:41
PROVIDERS: ATTEND Surgery
DX: Z01.818 Encounter for other preprocedural examination (principal)

== ENCOUNTER 2023-01-27 07:12 | Day surgery (SDC) | payer MEDICAID ==
[~2023-01-27] VITALS: Ht 177.8 cm; Wt 103.1 kg
[2023-01-27] MEDS ORDERED: LACTATED RINGERS 1,000 ML IV STA (07:27)
[2023-01-27 07:36] VITALS: BP 126/76
[2023-01-27] MEDS ORDERED: MIDAZOLAM 2 MG/2 ML (VERSED) VIAL ONE (07:49)
[2023-01-27] MEDS ORDERED: PROPOFOL INJECTION 50 ML IV ONE (07:49)
[2023-01-27 08:20] VITALS: BP 84/51
--- NOTE | 2023-01-27 08:22 | Progress Note-Post Operative ---
Post-Operative Progess Note Surgeon (s)/Director Of Software Development (s) Surgeon TAYLOR RIVERA DO Director Of Software Development: na Pre-Operative Diagnosis screening colonoscopy Post-Operative Diagnosis Cecal polyps, diverticulosis, slight sigmoid inflammation Procedure & Operative Findings Date of Procedure 01/27/23 Procedure Performed/Findings colonoscopy with hot biopsy polypectomy x1, sigmoid cold biopsies x2 Anesthesia Type per embedded software development engineer Estimated Blood Loss Estimated blood loss (mL): none Specimens/Packing Specimens Removed cecal polyp x1, sigmoid cold biopsy x2 TAYLOR RIVERA DO Jan 27, 2023 08:22
--- NOTE | 2023-01-27 08:24 | Discharge Inst-Simple/Standard ---
Discharge Inst-Standard Discharge Medications New, Converted or Re-Newed RX: Other (none) Patient Instructions/Follow Up Plan of Care/Instructions/FU: 2 weeks Pamela Activity as Tolerated: Yes Discharge Diet: Regular Diet (high fiber) TAYLOR RIVERA DO Jan 27, 2023 08:23
[2023-01-27 08:25] VITALS: BP 84/51
[2023-01-27 08:30] VITALS: BP 88/52
[2023-01-27 08:35] VITALS: BP 92/53
[2023-01-27 08:45] VITALS: BP 88/52
--- NOTE | 2023-01-27 11:44 | Anesthesia-General Post-Op ---
MAC Patient Condition Mental Status/LOC: Same as Preop Cardiovascular: Satisfactory Nausea/Vomiting: Absent Respiratory: Satisfactory Pain: Controlled Complications: Absent Post Op Complications Complications None Follow Up Care/Instructions Patient Instructions None needed. Anesthesiology Discharge Order Discharge Order Patient is doing well, no complaints, stable vital signs, no apparent adverse anesthesia problems. No complications reported per nursing. LISANDRA ATWOOD CRNA Jan 27, 2023 11:44
--- NOTE | 2023-01-27 13:44 | OPERATIVE REPORT ---
DATE OF SERVICE: 01/27/2023 PREOPERATIVE DIAGNOSES: History of diverticulitis. POSTOPERATIVE DIAGNOSES: Cecal polyp, diverticulosis, sigmoid inflammation, slight. PROCEDURE: Colonoscopy with hot biopsy polypectomy x1, cold biopsies of the sigmoid colon. SURGEON: Taylor Santiago DO ANESTHESIA: Per CONSULTING PRACTICE DIRECTOR. ESTIMATED BLOOD LOSS: None. COMPLICATIONS: None. INDICATIONS: The patient is a 22-year-old male with a history of perforated diverticulitis with conservative management. He understands the risks and benefits of procedure and wished to proceed for further evaluation. The patient's consent was signed in chart. DESCRIPTION OF PROCEDURE: The patient was taken to endoscopy suite, placed in left lateral recumbent position. Timeout was performed. Digital rectal exam was performed. No palpable polyps, masses or ulcerations. Scope was inserted in the rectum and advanced all the way to the cecum with minimal difficulty. Prep was adequate with irrigation and suction, except for the cecum, had a large amount of corn matter in it. Lots of irrigation and suction was used, but still slightly difficult to visualize, but no gross pathology noted. A polyp in the cecum was present, which hot biopsy polypectomy was performed. Scope was then continuously retracted back. No polyps, masses or ulcerations in the remainder of the ascending, transverse or descending colon. In the sigmoid colon, diverticulosis was present. There was also an area of some slight inflammation, which cold biopsies were obtained. Scope was then continuously retracted back to the rectum, where it was also retroflexed noting no other pathology. Scope was returned to its normal position, slowly withdrawn until completely removed. The patient tolerated the procedure well without complications, taken to recovery room in stable condition. RECOMMENDATIONS: The patient will need repeat colonoscopy in 5 years. Any issues before that, he will be seen at that time. He will follow up in the office in 2 weeks to discuss pathology results and see how symptoms are doing. Job ID: [id number] DocumentID: [id number] Dictated Date: 01/27/2023 08:19:08 Disk Sander Date: 01/27/2023 13:15:00 Dictated By: TAYLOR SANTIAGO DO
== END 2023-01-27 09:05 | disposition home or self-care (01) ==
LOC: ENDO 07:12
PROVIDERS: ATTEND Surgery
DX: K63.5 Polyp of colon (principal); K57.30 Diverticulosis of large intestine without perforation or abscess without bleeding; K52.9 Noninfective gastroenteritis and colitis, unspecified; F17.290 Nicotine dependence, other tobacco product, uncomplicated; E66.9 Obesity, unspecified; Z68.32 Body mass index [BMI] 32.0-32.9, adult; Z28.310 Unvaccinated for COVID-19

== ENCOUNTER 2023-06-29 03:59 | Emergency (ER) | payer SELFPAY ==
[~2023-06-29] VITALS: Ht 180 cm; Wt 99.7 kg
[~2023-06-29 03:59] MED LIST changes: -D-ME473S11 PO; +PROM473S15 PO
[2023-06-29] MEDS ORDERED: LACTATED RINGERS 1,000 ML IV ONE (04:15)
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
[2023-06-29 04:26] LABS: BASOPHILS # (AUTO) 0.1 10^3/uL (0.0-0.1); BASOPHILS % (AUTO) 1 % (0-10); EOSINOPHILS # (AUTO) 0.3 10^3/uL (0.0-0.3); EOSINOPHILS % (AUTO) 2 % (0-10); HEMATOCRIT 42 % (40-54); HEMOGLOBIN 13.9 g/dL (13.3-17.7); LYMPHOCYTES # (AUTO) 4.2 10^3/uL (1.0-4.0); LYMPHOCYTES % (AUTO) 36 % (12-44); MEAN CORPUSCULAR HEMOGLOBIN 29 pg (25-34); MEAN CORPUSCULAR HGB CONC 33 g/dL (32-36); MEAN CORPUSCULAR VOLUME 88 fL (80-99); MEAN PLATELET VOLUME 9.2 fL (9.0-12.2); MONOCYTES % (AUTO) 8 % (0-12); NEUTROPHILS # (AUTO) 6.2 10^3/uL (1.8-7.8); NEUTROPHILS % (AUTO) 53 % (42-75); PLATELET COUNT 298 10^3/uL (130-400); WHITE BLOOD COUNT 11.7 10^3/uL (4.3-11.0)
[2023-06-29 04:30] LABS: AMPHETAMINE SCREEN, URINE NEGATIVE (NEGATIVE); BARBITURATE SCREEN URINE NEGATIVE (NEGATIVE); BENZODIAZEPINES SCREEN URINE NEGATIVE (NEGATIVE); CANNABINOID SCREEN, URINE POSITIVE (NEGATIVE); COCAINE SCREEN URINE NEGATIVE (NEGATIVE); METHADONE STAT NEGATIVE (NEGATIVE); OPIATE SCREEN URINE NEGATIVE (NEGATIVE); OXYCODONE STAT NEGATIVE (NEGATIVE); PROPOXYPHENE STAT NEGATIVE (NEGATIVE); TRICYCLIC ANTIDEPRESSANTS SCRE NEGATIVE (NEGATIVE)
[2023-06-29 04:31] LABS: BILIRUBIN,URINE NEGATIVE (NEGATIVE); CLARITY,URINE CLEAR; COLOR,URINE YELLOW; GLUCOSE, URINE (UA) NEGATIVE (NEGATIVE); KETONES,URINE NEGATIVE (NEGATIVE); NITRITE,URINE NEGATIVE (NEGATIVE); PH,URINE 7.5 (5-9); PROTEIN,URINE NEGATIVE (NEGATIVE)
[2023-06-29 04:32] LABS: BACTERIA,URINE NEGATIVE /HPF; LEUKOCYTE ESTERASE ,URINE NEGATIVE (NEGATIVE)
[2023-06-29 04:33] LABS: ALBUMIN 4.4 GM/DL (3.2-4.5); CHLORIDE 106 MMOL/L (98-107); POTASSIUM 4.1 MMOL/L (3.6-5.0); SODIUM 141 MMOL/L (135-145)
[2023-06-29 04:34] LABS: CALCIUM 9.4 MG/DL (8.5-10.1)
[2023-06-29 04:35] LABS: AMYLASE 76 U/L (25-125); GLUCOSE 103 MG/DL (70-105)
[2023-06-29 04:36] LABS: TOTAL PROTEIN 7.8 GM/DL (6.4-8.2)
[2023-06-29 04:37] LABS: BILIRUBIN,TOTAL 0.2 MG/DL (0.1-1.0); CARBON DIOXIDE 23 MMOL/L (21-32)
[2023-06-29 04:39] LABS: ALKALINE PHOSPHATASE 86 U/L (40-136); CREATININE SERUM 1.05 MG/DL (0.60-1.30); GFR ESTIMATED 104
[2023-06-29 04:40] LABS: BUN/CREATININE RATIO 13
[2023-06-29 04:42] LABS: ALANINE AMINOTRANSFERASE 15 U/L (0-55)
[2023-06-29 04:43] LABS: LIPASE 47 U/L (8-78)
[2023-06-29] MEDS ORDERED: IOHEXOL 350 MG/ML 100 ML (OMNIPAQUE 350) VIAL IV ONE (04:45)
[2023-06-29] MEDS ORDERED: HOLD METFORMIN - RECEIVED CONTRAST 20 ML VIAL IV SCH (04:45)
[2023-06-29] MEDS ORDERED: NS 100 ML (IVPB) BAG IV ONE (04:45)
[2023-06-29] MEDS ORDERED: CYCL10TA25 PO (05:08)
[2023-06-29] MEDS ORDERED: NAPR500T8 PO (05:08)
[2023-06-29] MEDS ORDERED: ORPHENADRINE 60 MG/2 ML (NORFLEX) AMP (ED ONLY) IV ONE (05:15)
[2023-06-29] MEDS ORDERED: KETOROLAC INJ 30 MG/ML VIAL IVP ONE (05:15)
[2023-06-29 05:19] VITALS: BP 122/66
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
== END 2023-06-29 05:20 | disposition home or self-care (01) ==
LOC: EDUNIT# 03:59 → ER 04:02
DX: R07.89 Other chest pain (principal); M54.6 Pain in thoracic spine; F17.210 Nicotine dependence, cigarettes, uncomplicated; F17.290 Nicotine dependence, other tobacco product, uncomplicated; Z28.310 Unvaccinated for COVID-19; Y04.8XXA Assault by other bodily force, initial encounter; Y92.009 Unspecified place in unspecified non-institutional (private) residence as the place of occurrence of the external cause; Y93.79 Activity, other specified sports and athletics; Y07.410 Brother, perpetrator of maltreatment and neglect
CPT/HCPCS: 71045; 71260; 74177; 80053; 80306; 81000; 82150; 83690; 83735; 85025; G0480; 36415; 80320